=== PATIENT | female | born 1990 | race Caucasian/White ===

== ENCOUNTER 2017-02-19 09:35 | Emergency (ER) | payer OTHER ==
[~2017-02-19] VITALS: Ht 171.5 cm; Wt 72.8 kg
[~2017-02-19 09:35] MED LIST: ALBUAER2 INH; BCPILLS PO; CETI10TA84 PO; ELET20TA PO; PANT40TA PO; RANI300T2 PO; SCOP1.5D TD; SUCR1TAB29 PO
[2017-02-19 09:40] VITALS: TEMP 36.4; Ht 171.5 cm; Wt 72.8 kg
[2017-02-19] MEDS ORDERED: ALBUAER INH (10:13)
[2017-02-19] MEDS ORDERED: LEVO175T3 PO (10:13)
[2017-02-19 10:23] LABS: URINE APPEARANCE CLEAR (CLEAR); URINE BILIRUBIN NEG (NEG); URINE COLOR YELLOW; URINE EPITHELIAL CELL AUTO 20-30 /lpf (0-5); URINE NITRITE NEG (NEG); URINE SPECIFIC GRAVITY 1.014 (1.000-1.030); UROBILINOGEN NEG (NEG); ZZUR CULT IF INDIC CLEAN CATCH NO
[2017-02-19 10:27] LABS: BASO % 0.2 %; BASO ABS # 0.01 K/uL (0-0.2); COMPLETE YES; EOS % 1.2 %; HEMATOCRIT 40.1 % (37-47); IG% 0.2 %; LYMPH % 19.7 %; LYMPH ABS # 0.99 K/uL (1.2-3.4); MEAN CELL VOLUME 88.5 fL (80-100); MEAN CORPUSCULAR HEMOGLOBIN 30.9 pg (25-34); MEAN CORPUSCULAR HGB CONC 34.9 g/dl (32-36); MEAN PLATELET VOLUME 12.2 fL (7.4-10.4); MONO % 7.2 %; NEUT % 71.5 %; PLATELET COUNT 151 K/uL (130-400); RED BLOOD COUNT 4.53 M/uL (4.2-5.4); WHITE BLOOD COUNT 5.03 K/uL (4.8-10.8)
[2017-02-19 10:31] LABS: MANUAL MICROSCOPIC REQUIRED? NO; REVIEW REQ? NO
[2017-02-19 10:35] LABS: BUN/CREATININE RATIO 13.6 (10-20); CALCIUM 9.5 mg/dl (8.5-10.1); CREATININE 0.96 mg/dl (0.60-1.20); POTASSIUM 4.2 mmol/L (3.5-5.1)
[2017-02-19 10:37] LABS: ALB/GLOB RATIO 1.2 (0.9-2)
--- NOTE | 2017-02-19 10:39 | EMERGENCY ROOM VISIT NOTE ---
History Report prepared by Mela: Phyllis Howard Under the Supervision of: Dr. Allison Paris D.O. First contact with patient: 10:15 Chief Complaint: OTHER COMPLAINT Stated Complaint: CHEST PAIN,TREMORS,POSSIBLE MEDICATION REACTION History of Present Illness The patient is a 26 year old female who presents to the Emergency Room with complaints of a possible medication reaction. She reports she recently started a new thyroid medication, Levothyroxine, approximately 3 days ago, for newly diagnosed Abigail's Thyroiditis, for which she follows with Dr. Sullivan of [facility] End[facility]. This morning, approximately 2 minutes after she took it, she started feeling "lightheaded and shaky" as well as "cold and clammy". She did not pass out of lose consciousness. She admits to some intermittent nausea, chest pain, excessive burping and cramping pain in her arms and legs for the past 3 days. She has also experienced some mood swings for the past few days, which she states she has a history of. The patient complains of feeling feverish yesterday, but states her temperature was normal when she checked. She admits to a recent dry cough that also started after she began the Levothyroxine. She denies any chance of and states she is currently on her menstrual period. Her primary care physician is Dr. Carolina with [facility]. Source of History: patient Onset: earlier this morning Position: other (global) Quality: other (medication reaction) Associated Symptoms: + cough, + chest pain, + nausea, No LOC, No fevers Review of Systems See HPI for pertinent positives & negatives. A total of 10 systems reviewed and were otherwise negative. Past Medical & Surgical Medical Problems: (1) Abigail's thyroiditis (2) Orthostatic hypotension Family History Cancer Diabetes mellitus Gallbladder disease Hypertension Kidney disease Kidney stones Social History Smoking Status: Never Smoker Alcohol Use: none Drug Use: none Marital Status: single Housing Status: lives with family Occupation Status: unemployed Current/Historical Medications Scheduled Levothyroxine Sodium (Levothyroxine Sodium), 175 MCG PO DAILY Scheduled PRN Albuterol Sulfate (Proventil Hfa), 2 PUFF INH Q4H PRN for Shortness of Breath Allergies Coded Allergies: Coconut (Unverified Allergy, Unknown, UNKNOWN, 02/19/17) Egg (Unverified Allergy, Unknown, UNKNOWN, 02/19/17) Lactose Intolerance (GI) (Unverified Allergy, Unknown, UNKNOWN, 02/19/17) Peanut (Unverified Allergy, Unknown, UNKNOWN, 02/19/17) Soy Allergy (Unverified Allergy, Unknown, UNKNOWN, 02/19/17) Wheat (Unverified Allergy, Unknown, UNKNOWN, 02/19/17) Ibuprofen (Unverified Adverse Reaction, Intermediate, RASH/HIVES, 02/19/17) Polyethylene Glycol (Unverified Adverse Reaction, Intermediate, CHEST PAINS/NAUSEA, 02/19/17) Physical Exam Vital Signs Date Time Temp Pulse Resp B/P (MAP) Pulse Ox O2 Delivery O2 Flow Rate FiO2 02/19/17 13:15 68 18 106/76 96 02/19/17 09:40 36.4 80 18 118/74 100 Room Air Physical Exam HEENT: Head - normocephalic and atraumatic Pupils are equal, round, and reactive to light. Extraocular eye muscles are intact, and sclera are anicteric. Nose - moist nasal mucosa without discharge. Mouth - moist buccal mucosa. Oropharynx is nonerythematous and there is no tonsillar exudate or edema noted. Neck: Supple; no JVD, nuchal rigidity, cervical lymphadenopathy. Heart: Regular rate and rhythm. There is a normal S1 and S2 with no murmurs, clicks, or gallops appreciated. Lungs: Clear to auscultation bilaterally with no wheezes, rales, or rhonchi. Abdomen: Soft, completely nontender, nondistended, with good bowel sounds. There are no palpable pulsatile masses or hepatosplenomegaly. There is no guarding, rigidity, or rebound noted. Extremities: No evidence of cyanosis, clubbing, or edema. There are easily palpable peripheral pulses. Skin: Skin is pale, blotchy around the neck, chest and back. No hives or urticaria. Medical Decision & Procedures Laboratory Results 02/19/17 10:00 Red Blood Count 4.53, Mean Corpuscular Volume 88.5, Mean Corpuscular Hemoglobin 30.9, Mean Corpuscular Hemoglobin Concent 34.9, Mean Platelet Volume 12.2, Neutrophils (%) (Auto) 71.5, Lymphocytes (%) (Auto) 19.7, Monocytes (%) (Auto) 7.2, Eosinophils (%) (Auto) 1.2, Basophils (%) (Auto) 0.2, Neutrophils # (Auto) 3.60, Lymphocytes # (Auto) 0.99, Monocytes # (Auto) 0.36, Eosinophils # (Auto) 0.06, Basophils # (Auto) 0.01 02/19/17 10:00 Test 02/19/17 09:50 02/19/17 10:00 Urine Color YELLOW Urine Appearance CLEAR (CLEAR) Urine pH 5.0 (4.5-7.5) Urine Specific [place] 1.014 (1.000-1.030) Urine Protein NEG (NEG) Urine Glucose (UA) NEG (NEG) Urine Ketones 1+ (NEG) Urine Occult Blood 3+ (NEG) Urine Nitrite NEG (NEG) Urine Bilirubin NEG (NEG) Urine Urobilinogen NEG (NEG) Urine Leukocyte Esterase TRACE (NEG) Urine WBC (Auto) 1-5 /hpf (0-5) Urine RBC (Auto) 10-30 /hpf (0-4) Urine Hyaline Casts (Auto) 0 /lpf (0-5) Urine Epithelial Cells (Auto) 20-30 /lpf (0-5) Urine Bacteria (Auto) NEG (NEG) Urine Test NEG (NEG) White Blood Count 5.03 K/uL (4.8-10.8) Red Blood Count 4.53 M/uL (4.2-5.4) Hemoglobin 14.0 g/dL (12.0-16.0) Hematocrit 40.1 % (37-47) Mean Corpuscular Volume 88.5 fL (80-100) Mean Corpuscular Hemoglobin 30.9 pg (25-34) Mean Corpuscular Hemoglobin Concent 34.9 g/dl (32-36) Platelet Count 151 K/uL (130-400) Mean Platelet Volume 12.2 fL (7.4-10.4) Neutrophils (%) (Auto) 71.5 % Lymphocytes (%) (Auto) 19.7 % Monocytes (%) (Auto) 7.2 % Eosinophils (%) (Auto) 1.2 % Basophils (%) (Auto) 0.2 % Neutrophils # (Auto) 3.60 K/uL (1.4-6.5) Lymphocytes # (Auto) 0.99 K/uL (1.2-3.4) Monocytes # (Auto) 0.36 K/uL (0.11-0.59) Eosinophils # (Auto) 0.06 K/uL (0-0.5) Basophils # (Auto) 0.01 K/uL (0-0.2) RDW Standard Deviation 39.5 fL (36.4-46.3) RDW Coefficient of Variation 12.3 % (11.5-14.5) Immature Granulocyte % (Auto) 0.2 % Immature Granulocyte # (Auto) 0.01 K/uL (0.00-0.02) Anion Gap 4.0 mmol/L (3-11) Est Creatinine Clear Calc Drug Dose 89.6 ml/min Estimated GFR () 95.9 Estimated GFR (Non- 82.8 BUN/Creatinine Ratio 13.6 (10-20) Calcium Level 9.5 mg/dl (8.5-10.1) Total Bilirubin 0.6 mg/dl (0.2-1) Aspartate Amino Transf (AST/SGOT) 14 U/L (15-37) Alanine Aminotransferase (ALT/SGPT) 23 U/L (12-78) Alkaline Phosphatase 113 U/L (45-117) Total Protein 7.6 gm/dl (6.4-8.2) Albumin 4.2 gm/dl (3.4-5.0) Globulin 3.4 gm/dl (2.5-4.0) Albumin/Globulin Ratio 1.2 (0.9-2) Thyroid Stimulating Hormone (TSH) 4.730 uIu/ml (0.300-4.500) Free Thyroxine 1.39 ng/dl (0.80-1.60) Free Triiodothyronine 3.66 pg/ml (2.30-4.20) Laboratory results per my review. Medications Administered Medications (Trade) Dose Ordered Sig/Raisa Route Start Time Stop Time Status Last Admin Dose Admin Sodium Chloride 1,000 ml @ 999 mls/hr Q1H1M STAT IV 02/19/17 10:40 02/19/17 11:40 DC 02/19/17 10:56 999 MLS/HR Procedure NSS 1000 ml @ 999 mls/hr IV. ECG Indication: weakness Rate (beats per minute): 68 Rhythm: normal sinus Findings: no acute ischemic change, no ectopy ED Course 1029: Past medical records reviewed. The patient was evaluated in room B8. A complete history and physical exam was performed. Labs were drawn as above. 1040: NSS 1000 ml @ 999 mls/hr IV. The patient had a twelve-lead EKG as described above. 1250: I reevaluated the patient. She is feeling better. I discussed her results and discharge instructions and she verbalized complete understanding and agreement. Medical Decision I attest that I have personally reviewed the patient's current medication list. Patient was found to have normal blood pressure on screening and does not require follow-up. The patient is a 26 year old female who presents to the ED with a possible medication reaction. The differential diagnoses considered include: medication side effect, thyroid storm, anxiety, dehydration and orthostasis. Lab results show normal electrolytes, normal renal function, Glucose and LFT's are normal, TSH is 4.730, Free T4 is 1.3, Free T3 is 1.6. No elevated WBC. No anemia. Kidney function tests are normal. Normal sugars, electrolytes are normal , liver function tests are normal. Urine has a large amount of blood and a large number of ketone's to suggest dehydration. The patient was recently diagnosed with significant hypothyroidism as she had a TSH in excess of 85. I did review previous medical records on her and found that she had very low and normal TSH, free T3, and free T4 in 2013. She had recently seen endocrinology and her PCP started her on 125 g of levothyroxine. The patient had no side effects and continuous medication for approximately one week but then developed a multitude symptoms. Some of these may have been related to side effects and these meds, however the episode the patient describes today where she developed tremors approximately 2 minutes after taking her dose of levothyroxine, I'm not convinced that this was caused by ingestion of that medication. The patient does have history of anxiety. She also suffers from orthostatic hypotension. I think this may have contributed to her symptoms this morning. The patient also describes hand cramping and pain but notes that she was crying when these symptoms occurred. The patient will follow up with her PCP with regards to her thyroid medication. In laboratory testing today, the patient's TSH was down to approximately 4 from 85 in just 7-8 days. The patient explained to me that she has been nearly bedridden for the past couple of years with fibromyalgia and chronic fatigue syndrome stating that no one had ever checked her thyroid hormone levels in the past and this is the cause for her being bedridden. Impression Primary Impression: Anxiety Additional Impression: Medication reaction Scribe Attestation The scribe's documentation has been prepared under my direction and personally reviewed by me in its entirety. I confirm that the note above accurately reflects all work, treatment, procedures, and medical decision making performed by me. Departure Information Dispostion Home / Self-Care Referrals Annable Carolina M.D. (PCP) Patient Instructions Anxiety Body Response, Anxiety Disorder, My [facility] Additional Instructions Follow up on Tuesday with Dr. Sullivan Keep yourself well-hydrated. Return to the ER for worsening symptoms Problem Qualifiers Additional Impression: Medication reaction Encounter type: initial encounter Qualified Codes: T88.7XXA - Unspecified adverse effect of drug or medicament, initial encounter
[2017-02-19] MEDS ORDERED: SODIUM CHLORIDE 0.9% 1000ML 1,000 ML IV STA (10:40)
[2017-02-19 12:16] LABS: THYROID STIMULATING HORMONE 4.73 uIu/ml (0.300-4.500)
[2017-02-19 13:15] VITALS: BP 106/76; PULSE 68; O2SAT 96
== END 2017-02-19 14:16 | disposition home or self-care (01) ==
LOC: C.EDB 09:36
DX: F41.9 Anxiety disorder, unspecified (principal); T38.1X5A Adverse effect of thyroid hormones and substitutes, initial encounter; E06.3 Autoimmune thyroiditis; I95.1 Orthostatic hypotension; M79.7 Fibromyalgia; R53.82 Chronic fatigue, unspecified; Z80.9 Family history of malignant neoplasm, unspecified; Z83.3 Family history of diabetes mellitus; Z82.49 Family history of ischemic heart disease and other diseases of the circulatory system; Z84.1 Family history of disorders of kidney and ureter; Z79.899 Other long term (current) drug therapy

== ENCOUNTER 2024-07-10 14:35 | Inpatient (IN) ==
--- NOTE | 2024-07-10 15:01 | ED Triage Note ---
Date of Service July 10, 2024 Provider in Triage Author: Ahn Katz History of Present Illness This patient was briefly evaluated while in triage. An abbreviated physical exam was performed. This patient is a 34-year-old Female who presents to the ED for evaluation of na usea, vomiting, and diarrhea since 5am. Pt. states she doesn't know when her diarrhea happens, she feels a "splash in my underwear" and notes it smells very foul. Pt. took Zofran and meclizine prior to arrival without relief of symptoms. Pt. having generalized abdominal pain associated with vomiting and dry heaves. States there is a warm sensation which is radiating from the middle of her abdomen up to her throat. Physical Exam VITALS: Vitals are noted on the nurse's note and reviewed by myself. GENERAL: This is a 34 year old female, in no acute distress, nondiaphoretic, well-developed well-nourished. SKIN: No obvious rashes, edema, erythema HEAD: Normocephalic atraumatic. EYES: Conjunctivae without injection, sclerae without icterus. NECK: No JVD. LUNGS: No retractions or accessory muscle use. MUSCULOSKELETAL: Normal gait. NEURO: Patient was alert and oriented to person place and time. No focal neurological deficits. Initial orders for labs and / or imaging were placed and patient was placed in the waiting area until a bed is available. Please see further documentation for the full ED course.
[2024-07-10] MEDS: FAMOTIDINE 20MG IV PUSH 20 MG/5 ML SYR IV STA (15:46)
[2024-07-10] MEDS: ONDANSETRON INJ 2 MG/ML 2 ML VIAL IV STA (15:46)
[2024-07-10] MEDS: SODIUM CHLORIDE 0.9% 1,000 ML IV ONE ×3 (15:47→21:35)
[2024-07-10 16:19] LABS: Pregnancy Test, Serum Negative (Negative)
[2024-07-10 16:31] LABS: Alanine Aminotransferase 40 U/L (7-52); Albumin Globulin Ratio 1.8 (0.9-2); Albumin Level 4.9 gm/dl (3.4-5.0); Alkaline Phosphatase 82 U/L (34-104); Anion Gap 12 (3-11); BUN Creatinine Ratio 21.3 (10-20); Bilirubin,Total 0.9 mg/dl (0.2-1.0); Blood Urea Nitrogen 16 mg/dl (6-23); Calcium 9.5 mg/dl (8.6-10.3); Carbon Dioxide 19 mmol/L (21-32); Chloride 107 mmol/L (98-107); Globulin 2.8 gm/dl (2.5-4.0); Glucose 116 mg/dl (70-99(Fasting)); Lipase 10 U/L (11-82); Sodium 138 mmol/L (136-145); Total Protein 7.7 gm/dl (6.0-8.3)
[2024-07-10 16:45] LABS: Appearance Urine Cloudy (Clear); Bacteria Urine Automated 2+ (None Seen); Bilirubin Urine Negative (Negative); Blood Urine 3+ (Negative); Cast Urine Automated 0-2 /lpf (0-2); Color Urine Yellow; Glucose Urine UA Negative (Negative); Ketones Urine 3+ (Negative); Leukocyte Esterase Urine 2+ (Negative); Mucus Urine Present (None Prsent); Nitrite Urine Negative (Negative); Protein Urine 2+ (Negative); RBC Urine Automated >20 /hpf (0-2); Specific Gravity Urine 1.033 (1.000-1.030); Urobilinogen Urine Negative (Negative); WBC Urine Automated 21-50 /hpf (0-5); pH Urine 5.5 (4.5-7.5)
[2024-07-10] MEDS: OPTIRAY 320 100ml IV ONE (17:30)
[2024-07-10 17:45] LABS: Adenovirus F 40/41 PCR Not Detected (NotDetected); Astrovirus PCR Not Detected (NotDetected); Campylobacter PCR Not Detected (NotDetected); Cryptosporidium PCR Not Detected (NotDetected); Cyclospora cayetanensis PCR Not Detected (NotDetected); Entamoeba histolytica PCR Not Detected (NotDetected); Enteroaggregative E.coli(EAEC) Not Detected (NotDetected); Enteropathogenic E.coli (EPEC) Not Detected (NotDetected); Enterotoxigenic E.coli (ETEC) Not Detected (NotDetected); Giardia lamblia PCR Not Detected (NotDetected); Plesiomonas shigelloides PCR Not Detected (NotDetected); Rotavirus A PCR Not Detected (NotDetected); Salmonella PCR Not Detected (NotDetected); Sapovirus PCR Not Detected (NotDetected); Shiga-like Toxin E.coli (STEC) Not Detected (NotDetected); Shigella/Enteroinvasive E.coli Not Detected (NotDetected); Vibrio cholerae PCR Not Detected (NotDetected); Vibrio species PCR Not Detected (NotDetected); Yersinia enterocolitica PCR Not Detected (NotDetected)
--- NOTE | 2024-07-10 17:49 | CT Scan Report ---
EXAM: CT Abdomen and Pelvis With Intravenous Contrast INDICATION: Upper abdominal pain and vomiting. TECHNIQUE: Axial computed tomography images of the abdomen and pelvis with intravenous contrast. Sagittal and coronal reformatted images were created and reviewed. This CT exam was performed using one or more of the following dose reduction techniques: automated exposure control, adjustment of the mA and/or kV according to patient size, and/or use of iterative reconstruction technique. CONTRAST: 91ml of Optiray 320 was administered intravenously. COMPARISON: No relevant prior studies available. FINDINGS: Limitations: None. Lung bases: No abnormality noted. Pleural space: No visualized pleural effusion or pneumothorax. Heart: No abnormality noted. Mediastinum: No abnormality noted. ABDOMEN: Liver: No abnormality noted. Gallbladder and bile ducts: Cholecystectomy. No ductal dilation or stone noted. Pancreas: Homogeneous enhancement. No mass, inflammation or ductal dilation. Spleen: No significant abnormality noted. Adrenals: No significant abnormality noted. Kidneys and ureters: Normal enhancement. No mass, hydronephrosis or visualized stone. Stomach and bowel: There is fluid throughout the intestinal tract without thickening, obstruction or inflammatory change in the adjacent mesentery. PELVIS: Appendix: Well seen and appears normal. Bladder: Incompletely distended and not optimally assessed. No gas or stone. Reproductive: No abnormalities noted. ABDOMEN and PELVIS: Intraperitoneal space: See above. Bones/joints: No acute changes. Soft tissues: No significant abnormality noted. Vasculature: No abdominal aortic aneurysm. Lymph nodes: No pathologically enlarged lymph nodes. IMPRESSION: 1. Mild nonspecific ileus. No inflammatory process or obstruction. 2. Poorly evaluated urinary bladder due to collapse. Correlate with urinalysis to exclude cystitis. ACT 112: Negative or not required by law. Electronically signed by Destini Nicholson 07-10-2024 5:49 PM
[2024-07-10] MEDS: cefTRIAXone SODIUM 2,000 MG/50 ML BAG IV SCH (17:56)
[2024-07-10 18:15] LABS: Norovirus GI/GII PCR DETECTED (NotDetected)
[2024-07-10 18:29] LABS: Hematocrit (blood only) 44.1 % (37.0-47.0); Hemoglobin 14.8 g/dl (12.0-16.0); Mean Corpuscular Hemoglobin 30.2 pg (25.0-34.0); Mean Corpuscular Hgb Conc 33.6 g/dL (32.0-36.0); Mean Platelet Volume 12.3 fL (9.4-12.4); Platelet Count 187 K/uL (130-400); RDW Coefficient of Variation 12.3 % (11.5-14.5); RDW Standard Deviation 40.2 fL (36.4-46.3); White Blood Count 15.37 K/ul (4.8-10.8)
--- NOTE | 2024-07-10 18:34 | Emergency Department Note ---
Impression & Plan Nausea, vomiting, and diarrhea, Acute dehydration, Gastroenteritis, Gastroenteritis due to norovirus ED Provider Note HISTORY OF PRESENT ILLNESS: Patient is a 34-year-old female presenting with abdominal pain, vomiting and diarrhea. Patient reports that she woke up this morning at 5 AM and started vomiting. Reports has been unable to tolerate oral intake and has had persistent episodes of vomiting throughout the day. Reports that she started having profuse diarrhea and bowel incontinence throughout the day today. Reports that her stool is very foul-smelling. Reports generalized abdominal pain. Reports an abdominal surgical history significant for cholecystectomy. She states she took Zofran at home today but then proceeded to vomit. Reports feeling very lightheaded and dehydrated. Denies any chest pain or shortness of breath. Denies any fevers. Denies any recent sick contact exposures. Denies any recent travel. ROS: as above PHYSICAL EXAM: Constitutional: Patient appears in no acute distress. HENT: Head: Normocephalic and atraumatic. Eyes: EOMI, PERRL Mouth/Throat: Mucous membranes dry. Neck: Trachea midline. Neck supple. Cardiovascular: Tachycardic with regular rhythm. No murmurs, rubs or gallops. Intact distal pulses. Pulmonary/Chest: No respiratory distress. Breath sounds clear and equal bilaterally. No wheezes or rales. Abdominal: Abdomen soft, no tenderness, rebound or guarding. Musculoskeletal: No edema, tenderness or deformity noted. Skin: Warm and dry. No rash, erythema, pallor or cyanosis Psychiatric: Appropriate mood and affect for situation. Neurological: Alert and keenly responsive. CN II-XII grossly intact, moving all extremities equally and fully. MDM: - Vitals signs showed tachycardia. - History obtained via patient. History as above. - Chronic conditions affecting care: IBS; hypothyroidism - Differential diagnoses include, but are not limited to: Viral syndrome; choledocholithiasis; diverticulitis; dehydration; electrolyte abnormality; appendicitis - Order placed for continuous cardiac monitoring. At this time, monitor showed rate of 106 bpm with normal sinus rhythm, per my interpretation. - External medical records reviewed. Family practice office visit note dated 09/20/2022 was reviewed. Patient was seen in clinic for general medicine follow- up. - Laboratory workup interpreted by myself showed leukocytosis (WBC 15.37); normal electrolytes; elevated anion gap (12) with slightly elevated glucose (116); normal liver function; normal lipase; negative hCG - Viral respiratory panel negative - UA showed bacteria and WBCs, but noted to have significant number of epithelial cells. Patient is not complaining of any dysuria. Patient given a one-time dose of 2 g IV Rocephin in the emergency department. As patient is asymptomatic, will await urine cultures and not prescribing outpatient antibiotic at this time. - Stool PCR positive for norovirus. - CT abdomen/pelvis with IV contrast showed nonspecific ileus. Normal appendix. - Patient given 1L NS, 20 mg IV pepcid and 4 mg IV zofran on arrival to ER. Given an additional 1L NS in ER for hydration. Patient's tachycardia improved with IV hydration. - Leukocytosis likely reactive secondary to patient's multiple episodes of vomiting and diarrhea. - Discussed results with the patient. Instructed on good hand hygiene given her norovirus positivity. Instructed on staying well-hydrated for the next few days. She does have Zofran at home. She tolerated oral intake in the emergency department any further episodes of vomiting. Patient feels comfortable plan for discharge. - Patient remained stable throughout the visit. Results were discussed with the patient and patient's family. They were given the opportunity to ask questions. Had lengthy discussion with patient about supportive care return precautions. No new prescriptions. No changes to medications. Patient to follow up with primary care physician for further evaluation and management. All questions answered. Patient agreeable plan. ASSESSMENT AND PLAN: Diagnosis: Nausea, vomiting and diarrhea; gastroenteritis; gastroenteritis due to norovirus infection; acute dehydration Plan: Discharge Past Med/Surg History Problem List (Updated 07/10/24 @ 19:45 by Anh Katz MD) Gastroenteritis due to norovirus (Acute) Gastroenteritis (Acute) Acute dehydration (Acute) Nausea, vomiting, and diarrhea (Acute) Nausea (Acute) Dehydration (Acute) Vertigo (Acute) Dysmenorrhea (Acute) Lactose intolerance Depression GERD (gastroesophageal reflux disease) Irritable bowel syndrome (IBS) Migraine headache Asthma Generalized anxiety disorder Hypothyroidism (Chronic) Orthostatic hypotension Medical History Goiter Rash Abigail's thyroiditis Surgical History H/O colonoscopy (02/2019) Dr. Leyva Hx of esophagogastroduodenoscopy (02/2019) Dr. Leyva Hx of cholecystectomy History of tonsillectomy and adenoidectomy Family History Mother Crohn's disease Father Mitral valve prolapse Social History Smoking Status: Never smoker Hx Alcohol Use: No Preferred Language: [place] Feels Safe at Home: Yes Allergies Allergies Allergy/AdvReac Type Severity Reaction Status Date / Time coconut Allergy Unknown UNKNOWN Unverified 09/10/20 13:00 egg Allergy Unknown UNKNOWN Unverified 09/10/20 13:00 lactose Allergy Unknown UNKNOWN Unverified 09/10/20 13:00 peanut Allergy Unknown UNKNOWN Unverified 09/10/20 13:00 soy Allergy Unknown UNKNOWN Unverified 09/10/20 13:00 wheat Allergy Unknown UNKNOWN Unverified 09/10/20 13:00 almond Allergy Verified 09/10/20 13:00 ibuprofen AdvReac Intermediate RASH/HIVES Unverified 09/10/20 13:00 polyethylene glycol AdvReac Intermediate CHEST Unverified 09/10/20 13:00 PAINS/NAUSEA Home Meds Home Medications Medication Instructions Recorded Confirmed albuterol sulfate 90 mcg/actuation 2 puffs inhalation Q4H PRN 06/17/19 09/10/20 aerosol inhaler Shortness Of Breath levothyroxine 25 mcg tablet 25 mcg PO DAILY 06/17/19 09/10/20 cyanocobalamin (vitamin B-12) 1,500 mcg PO DAILY 09/10/20 09/10/20 1,500 mcg tablet,extended release Previous Rx's Medication Instructions Recorded cetirizine 1 mg/mL oral solution 10 mg (10 mL) PO DAILY PRN allergy 02/27/19 symptoms #300 mL meclizine 25 mg tablet 25 mg PO TID PRN dizziness #14 tabs 07/03/24 ondansetron 4 mg disintegrating 4 mg PO Q6H PRN nausea and 07/03/24 tablet vomiting #14 tabs Results & Data (ED) Vital Signs Vital Signs - 24 hr 07/10/24 15:00 07/10/24 17:35 07/10/24 18:12 Temperature 36.6 C Temperature Source Temporal Artery Scan Pulse Rate 121 H 113 H Pulse Rate from SpO2 Sensor Respiratory Rate 18 Respiratory Effort / Characteristics Non-Labored Spontaneous Respiratory Depth Normal Respiratory Pattern Regular Blood Pressure 123/76 Blood Pressure Mean 91 Pulse Oximetry 98 98 Oxygen Delivery Method Room Air Room Air Sepsis Recent Fever Within 48 Hours No Sepsis New/Unexplained Change in Mental Status N/A Sepsis Action Taken by Nursing No Action Required 07/10/24 18:27 07/10/24 19:03 07/10/24 19:39 Temperature Temperature Source Pulse Rate 106 H 101 H 106 H Pulse Rate from SpO2 Sensor 108 H 102 H 107 H Respiratory Rate 17 14 24 Respiratory Effort / Characteristics Respiratory Depth Respiratory Pattern Blood Pressure 116/82 125/90 118/80 Blood Pressure Mean 93 101 92 Pulse Oximetry 100 99 100 Oxygen Delivery Method Sepsis Recent Fever Within 48 Hours Sepsis New/Unexplained Change in Mental Status Sepsis Action Taken by Nursing Laboratory Data 07/10/24 18:07 07/10/24 18:43 Lab Results 07/10/24 07/10/24 07/10/24 Range/Units 15:40 16:08 17:49 WBC Cancelled RBC Cancelled Hgb Cancelled Hct Cancelled MCV Cancelled MCH Cancelled MCHC Cancelled RDW Std Deviation Cancelled RDW Coeff of Jena Cancelled Plt Count Cancelled MPV Cancelled Immature Gran % (Auto) Cancelled Neut % (Auto) Cancelled Lymph % (Auto) Cancelled [place] % (Auto) Cancelled Eos % (Auto) Cancelled Baso % (Auto) Cancelled Neut # (Auto) Cancelled Lymph # (Auto) Cancelled [place] # (Auto) Cancelled Eos # (Auto) Cancelled Baso # (Auto) Cancelled Immature Gran # (Auto) Cancelled Absolute Nucleated RBC Cancelled Nucleated RBC % (auto) Cancelled Neutrophils % (Manual) Cancelled Band Neutrophils % Cancelled Lymphocytes % (Manual) Cancelled Prolymphocyte % Cancelled Reactive Lymphs % (Man) Cancelled Monocytes % (Manual) Cancelled Eosinophils % (Manual) Cancelled Basophils % (Manual) Cancelled Metamyelocytes % (Man) Cancelled Myelocytes % (Man) Cancelled Promyelocytes % (Man) Cancelled Blast Cells % (Manual) Cancelled Plasma Cell % (Manual) Cancelled Other Cells % Cancelled Nucleated RBC % Cancelled Neutrophils # (Manual) Cancelled Band Neutrophils # Cancelled Total Absolute Neuts Cancelled Lymphocytes # (Manual) Cancelled Prolymphocyte # Cancelled Reactive Lymphs # Cancelled Total Abs Lymphocytes Cancelled Monocytes # (Manual) Cancelled Eosinophils # (Manual) Cancelled Basophils # (Manual) Cancelled Metamyelocytes # (Man) Cancelled Myelocytes # (Manual) Cancelled Promyelocytes # (Man) Cancelled Blast Cells # (Man) Cancelled Plasma Cell # (Manual) Cancelled Other Cells # Cancelled Nucleated RBCs # (Man) Cancelled Hypersegmented Neuts Cancelled Hyposegmented Neuts Cancelled Hypogranular Neuts Cancelled Large Granular Lymphs Cancelled # Lrg Granular Lymphs Cancelled Hairy Cells Cancelled Smudge Cells Cancelled Toxic Granulation Cancelled Toxic Vacuolation Cancelled Dohle Bodies Cancelled Madhu Rods Cancelled Platelet Estimate Cancelled Hypogranular Platelets Cancelled Giant Platelets Cancelled Platelet Satelliting Cancelled RBC Morphology Cancelled Polychromasia Cancelled Hypochromasia Cancelled Poikilocytosis Cancelled Basophilic Stippling Cancelled Anisocytosis Cancelled Microcytosis Cancelled Macrocytosis Cancelled Spherocytes Cancelled Pappenheimer Bodies Cancelled Sickle Cells Cancelled Target Cells Cancelled Tear Drop Cells Cancelled Ovalocytes Cancelled Stomatocytes Cancelled [place] Bodies Cancelled Echinocytes Cancelled Acanthocytes (Spur) Cancelled Rouleaux Cancelled RBC Agglutinates Cancelled Schistocytes Cancelled Sezary Cell Cancelled Sodium 138 (136-145) mmol/L Potassium TNP Chloride 107 (98-107) mmol/L Carbon Dioxide 19 L (21-32) mmol/L Anion Gap 12 H (3-11) BUN 16 (6-23) mg/dl Creatinine 0.75 (0.6-1.2) mg/dl Est Cr Clr Drug Dosing Not Reportable eGFR 108.41 BUN/Creatinine Ratio 21.3 H (10-20) Glucose 116 H (70-99(Fasting)) mg/dl Calcium 9.5 (8.6-10.3) mg/dl Total Bilirubin 0.9 (0.2-1.0) mg/dl AST TNP ALT 40 (7-52) U/L Alkaline Phosphatase 82 (34-104) U/L Total Protein 7.7 (6.0-8.3) gm/dl Albumin 4.9 (3.4-5.0) gm/dl Globulin 2.8 (2.5-4.0) gm/dl Albumin/Globulin Ratio 1.8 (0.9-2) Lipase 10 L (11-82) U/L HCG, Qual Negative (Negative) Urine Color Yellow Urine Appearance Cloudy A (Clear) Urine pH 5.5 (4.5-7.5) Ur Specific [place] 1.033 H (1.000-1.030) Urine Protein 2+ H (Negative) Urine Glucose (UA) Negative (Negative) Urine Ketones 3+ H (Negative) Urine Blood 3+ H (Negative) Urine Nitrite Negative (Negative) Urine Bilirubin Negative (Negative) Urine Urobilinogen Negative (Negative) Ur Leukocyte Esterase 2+ H (Negative) Urine WBC (Auto) 21-50 H (0-5) /hpf Urine RBC (Auto) >20 H (0-2) /hpf U Hyaline Cast (Auto) 0-2 (0-2) /lpf U Epithel Cells (Auto) 11-20 H (0-2) /hpf Urine Bacteria (Auto) 2+ H (None Seen) Urine Mucus Present A (None Prsent) Stl C. cayetanensis PCR Not Detected (NotDetected) Stool Rotavirus A PCR Not Detected (NotDetected) Stl Adenov F 40/41 PCR Not Detected (NotDetected) Stool Astrovirus (PCR) Not Detected (NotDetected) Stool Campylobacter PCR Not Detected (NotDetected) Stool Cryptosporidium PCR Not Detected (NotDetected) Stl E.coli Shiga Tox PCR Not Detected (NotDetected) Stl Enterotoxigenic E PCR Not Detected (NotDetected) Stool EPEC (PCR) Not Detected (NotDetected) Stool EAEC (PCR) Not Detected (NotDetected) Stl E. histolytica PCR Not Detected (NotDetected) Stool Giardia Lamblia PCR Not Detected (NotDetected) Stool Salmonella PCR Not Detected (NotDetected) Stool Sapovirus (PCR) Not Detected (NotDetected) Stl P. shigelloides PCR Not Detected (NotDetected) Stl Shigella/EIEC PCR Not Detected (NotDetected) St Y.enterocolitica PCR Not Detected (NotDetected) Stool Vibrio (PCR) Not Detected (NotDetected) Stl Vibrio cholerae PCR Not Detected (NotDetected) Stl Norovirus GI/GII PCR DETECTED A* (NotDetected) Adenovirus (PCR) Not Detected (NotDetected) B. pertussis DNA (PCR) Not Detected (NotDetected) B.parapertussis DNA PCR Not Detected (NotDetected) C. pneumoniae DNA (PCR) Not Detected (NotDetected) Coronavirus OC43 (PCR) Not Detected (NotDetected) Coronavirus HKU1 (PCR) Not Detected (NotDetected) Coronavirus 229E (PCR) Not Detected (NotDetected) SARS-CoV-2 (PCR) Not Detected (NotDetected) Coronavirus NL63 (PCR) Not Detected (NotDetected) Human Metapneumovir PCR Not Detected (NotDetected) Influenza Type A (PCR) Not Detected (NotDetected) Influenza Type B (PCR) Not Detected (NotDetected) M. pneumoniae (PCR) Not Detected (NotDetected) Parainfluenza 1 (PCR) Not Detected (NotDetected) Parainfluenza 2 (PCR) Not Detected (NotDetected) Parainfluenza 3 (PCR) Not Detected (NotDetected) Parainfluenza 4 (PCR) Not Detected (NotDetected) RSV (PCR) Not Detected (NotDetected) Entero/Rhino (PCR) Not Detected (NotDetected) Blood Parasites ID Cancelled 07/10/24 07/10/24 Range/Units 18:07 18:43 WBC 15.37 H RBC 4.90 Hgb 14.8 Hct 44.1 MCV 90.0 MCH 30.2 MCHC 33.6 RDW Std Deviation 40.2 RDW Coeff of Jena 12.3 Plt Count 187 MPV 12.3 Immature Gran % (Auto) 0.3 Neut % (Auto) 94.6 Lymph % (Auto) 1.8 [place] % (Auto) 3.1 Eos % (Auto) 0.1 Baso % (Auto) 0.1 Neut # (Auto) 14.57 H Lymph # (Auto) 0.[address] [place] # (Auto) 0.47 Eos # (Auto) 0.01 Baso # (Auto) 0.01 Immature Gran # (Auto) 0.04 Absolute Nucleated RBC Nucleated RBC % (auto) Neutrophils % (Manual) Band Neutrophils % Lymphocytes % (Manual) Prolymphocyte % Reactive Lymphs % (Man) Monocytes % (Manual) Eosinophils % (Manual) Basophils % (Manual) Metamyelocytes % (Man) Myelocytes % (Man) Promyelocytes % (Man) Blast Cells % (Manual) Plasma Cell % (Manual) Other Cells % Nucleated RBC % Neutrophils # (Manual) Band Neutrophils # Total Absolute Neuts Lymphocytes # (Manual) Prolymphocyte # Reactive Lymphs # Total Abs Lymphocytes Monocytes # (Manual) Eosinophils # (Manual) Basophils # (Manual) Metamyelocytes # (Man) Myelocytes # (Manual) Promyelocytes # (Man) Blast Cells # (Man) Plasma Cell # (Manual) Other Cells # Nucleated RBCs # (Man) Hypersegmented Neuts Hyposegmented Neuts Hypogranular Neuts Large Granular Lymphs # Lrg Granular Lymphs Hairy Cells Smudge Cells Toxic Granulation Toxic Vacuolation Dohle Bodies Madhu Rods Platelet Estimate Hypogranular Platelets Giant Platelets Platelet Satelliting RBC Morphology Polychromasia Hypochromasia Poikilocytosis Basophilic Stippling Anisocytosis Microcytosis Macrocytosis Spherocytes Pappenheimer Bodies Sickle Cells Target Cells Tear Drop Cells Ovalocytes Stomatocytes [place] Bodies Echinocytes Acanthocytes (Spur) Rouleaux RBC Agglutinates Schistocytes Sezary Cell Sodium (136-145) mmol/L Potassium TNP 3.7 Chloride (98-107) mmol/L Carbon Dioxide (21-32) mmol/L Anion Gap (3-11) BUN (6-23) mg/dl Creatinine (0.6-1.2) mg/dl Est Cr Clr Drug Dosing eGFR BUN/Creatinine Ratio (10-20) Glucose (70-99(Fasting)) mg/dl Calcium (8.6-10.3) mg/dl Total Bilirubin (0.2-1.0) mg/dl AST TNP 21 ALT (7-52) U/L Alkaline Phosphatase (34-104) U/L Total Protein (6.0-8.3) gm/dl Albumin (3.4-5.0) gm/dl Globulin (2.5-4.0) gm/dl Albumin/Globulin Ratio (0.9-2) Lipase (11-82) U/L HCG, Qual (Negative) Urine Color Urine Appearance (Clear) Urine pH (4.5-7.5) Ur Specific [place] (1.000-1.030) Urine Protein (Negative) Urine Glucose (UA) (Negative) Urine Ketones (Negative) Urine Blood (Negative) Urine Nitrite (Negative) Urine Bilirubin (Negative) Urine Urobilinogen (Negative) Ur Leukocyte Esterase (Negative) Urine WBC (Auto) (0-5) /hpf Urine RBC (Auto) (0-2) /hpf U Hyaline Cast (Auto) (0-2) /lpf U Epithel Cells (Auto) (0-2) /hpf Urine Bacteria (Auto) (None Seen) Urine Mucus (None Prsent) Stl C. cayetanensis PCR (NotDetected) Stool Rotavirus A PCR (NotDetected) Stl Adenov F 40/41 PCR (NotDetected) Stool Astrovirus (PCR) (NotDetected) Stool Campylobacter PCR (NotDetected) Stool Cryptosporidium PCR (NotDetected) Stl E.coli Shiga Tox PCR (NotDetected) Stl Enterotoxigenic E PCR (NotDetected) Stool EPEC (PCR) (NotDetected) Stool EAEC (PCR) (NotDetected) Stl E. histolytica PCR (NotDetected) Stool Giardia Lamblia PCR (NotDetected) Stool Salmonella PCR (NotDetected) Stool Sapovirus (PCR) (NotDetected) Stl P. shigelloides PCR (NotDetected) Stl Shigella/EIEC PCR (NotDetected) St Y.enterocolitica PCR (NotDetected) Stool Vibrio (PCR) (NotDetected) Stl Vibrio cholerae PCR (NotDetected) Stl Norovirus GI/GII PCR (NotDetected) Adenovirus (PCR) (NotDetected) B. pertussis DNA (PCR) (NotDetected) B.parapertussis DNA PCR (NotDetected) C. pneumoniae DNA (PCR) (NotDetected) Coronavirus OC43 (PCR) (NotDetected) Coronavirus HKU1 (PCR) (NotDetected) Coronavirus 229E (PCR) (NotDetected) SARS-CoV-2 (PCR) (NotDetected) Coronavirus NL63 (PCR) (NotDetected) Human Metapneumovir PCR (NotDetected) Influenza Type A (PCR) (NotDetected) Influenza Type B (PCR) (NotDetected) M. pneumoniae (PCR) (NotDetected) Parainfluenza 1 (PCR) (NotDetected) Parainfluenza 2 (PCR) (NotDetected) Parainfluenza 3 (PCR) (NotDetected) Parainfluenza 4 (PCR) (NotDetected) RSV (PCR) (NotDetected) Entero/Rhino (PCR) (NotDetected) Blood Parasites ID Administered Medications Ceftriaxone Sodium (Rocephin) 2,000 mg in 50 mls @ 100 mls/hr IV Q24H KUSH Stop: 07/12/24 17:44 Last Infusion: 07/10/24 18:32 Dose: Infused Documented By: CARLOS EDUARDO Admin: 07/10/24 17:56 Dose: 100 mls/hr Documented By: CARLOS EDUARDO Discontinued Medications Famotidine (Pepcid 20mg Iv Push) 20 mg in 5 mls @ 2.5 mls/min IV NOW STA Stop: 07/10/24 15:02 Last Admin: 07/10/24 15:46 Dose: 2.5 mls/min Documented By: RENEE Sodium Chloride (Nss) 1,000 mls @ 999 mls/hr IV .Q1H1M ONE Stop: 07/10/24 16:02 Last Infusion: 07/10/24 18:32 Dose: Infused Documented By: CARLOS EDUARDO Admin: 07/10/24 15:47 Dose: 999 mls/hr Documented By: RENEE Sodium Chloride (Nss) 1,000 mls @ 999 mls/hr IV .Q1H1M ONE Stop: 07/10/24 18:38 Last Admin: 07/10/24 17:56 Dose: 999 mls/hr Documented By: CARLOS EDUARDO Ioversol (Optiray 320 100ml) 91 ml IV ONCE ONE Stop: 07/10/24 17:31 Last Admin: 07/10/24 17:30 Dose: 91 ml Documented By: BENOIT Ondansetron HCl (Ondansetron Inj 2 Mg/Ml 2 Ml Vial) 4 mg IV NOW STA Stop: 07/10/24 15:02 Last Admin: 07/10/24 15:46 Dose: 4 mg Documented By: LCD Imaging Data Radiologist's Impression: Abdomen/Pelvis CT 07/10/24 17:03 EXAM: CT Abdomen and Pelvis With Intravenous Contrast INDICATION: Upper abdominal pain and vomiting. TECHNIQUE: Axial computed tomography images of the abdomen and pelvis with intravenous contrast. Sagittal and coronal reformatted images were created and reviewed. This CT exam was performed using one or more of the following dose reduction techniques: automated exposure control, adjustment of the mA and/or kV according to patient size, and/or use of iterative reconstruction technique. CONTRAST: 91ml of Optiray 320 was administered intravenously. COMPARISON: No relevant prior studies available. FINDINGS: Limitations: None. Lung bases: No abnormality noted. Pleural space: No visualized pleural effusion or pneumothorax. Heart: No abnormality noted. Mediastinum: No abnormality noted. ABDOMEN: Liver: No abnormality noted. Gallbladder and bile ducts: Cholecystectomy. No ductal dilation or stone noted. Pancreas: Homogeneous enhancement. No mass, inflammation or ductal dilation. Spleen: No significant abnormality noted. Adrenals: No significant abnormality noted. Kidneys and ureters: Normal enhancement. No mass, hydronephrosis or visualized stone. Stomach and bowel: There is fluid throughout the intestinal tract without thickening, obstruction or inflammatory change in the adjacent mesentery. PELVIS: Appendix: Well seen and appears normal. Bladder: Incompletely distended and not optimally assessed. No gas or stone. Reproductive: No abnormalities noted. ABDOMEN and PELVIS: Intraperitoneal space: See above. Bones/joints: No acute changes. Soft tissues: No significant abnormality noted. Vasculature: No abdominal aortic aneurysm. Lymph nodes: No pathologically enlarged lymph nodes. IMPRESSION: 1. Mild nonspecific ileus. No inflammatory process or obstruction. 2. Poorly evaluated urinary bladder due to collapse. Correlate with urinalysis to exclude cystitis. ACT 112: Negative or not required by law. Electronically signed by Destini Nicholson 07-10-2024 5:49 PM Discharge Plan Visit Data Chief Complaint: Flu Like Symptoms Stated Complaint: VOMITING, DEHYDRATION, DIARRHEA ED Provider: Anh Katz Discharge Problem: Nausea, vomiting, and diarrhea, Acute dehydration, Gastroenteritis, Gastroenteritis due to norovirus Patient Disposition: Home - Self-Care Discharge Instructions Krames/Other Patient Handouts: Understanding Norovirus Activity Restrictions/Additional Instructions: Your laboratory workup in the emergency department showed that your white blood cell count, which is a marker of infection or elevation, was slightly elevated. This can be indicative of an infection or an inflammatory etiology, such as profuse vomiting and diarrhea. Your CT imaging showed inflammation of your bowel. No evidence of appendicitis or bowel obstruction. Your stool studies were positive for norovirus infection, which is a viral infection that can cause nausea, vomiting and diarrhea. Recommend staying well-hydrated over the next few days and slowly advancing her diet as tolerated. You can continue to use Zofran or dancer Bart for further nausea. Please return to the emergency department if you develop inability to tolerate oral intake, worsening abdominal pain, fever, pain, or any new or worsening symptoms. Recommend good handwashing, with soap and water, over the next few days. Forms Stand Alone Forms: [facility], Important Visit Information Prescriptions Prescriptions: No Action levothyroxine 25 mcg tablet 25 mcg PO DAILY albuterol sulfate 90 mcg/actuation HFA aerosol inhaler 2 puffs inhalation Q4H PRN (Reason: Shortness Of Breath) cetirizine 1 mg/mL solution 10 mg PO DAILY PRN (Reason: allergy symptoms) Qty: 300 5RF Vitamin B-12 1,500 mcg Tablet Extended Release 1,500 mcg PO DAILY meclizine 25 mg tablet 25 mg PO TID PRN (Reason: dizziness) Qty: 14 0RF ondansetron 4 mg tablet,disintegrating 4 mg PO Q6H PRN (Reason: nausea and vomiting) Qty: 14 0RF Referrals Referrals: Annabel Carolina MD [Primary Care Provider] -
[2024-07-10 18:45] LABS: Basophils # (auto) 0.01 K/uL (0.00-0.20); Basophils % (auto) 0.1 %; Eosinophils # (auto) 0.01 K/uL (0.00-0.50); Eosinophils % (auto) 0.1 %; Immature Granulocytes # (auto) 0.04 K/uL (0.01-0.20); Immature Granulocytes % (auto) 0.3 %; Lymphocytes # (auto) 0.27 K/uL (1.20-3.40); Lymphocytes % (auto) 1.8 %; Monocytes # (auto) 0.47 K/uL (0.11-0.59); Monocytes % (auto) 3.1 %; Neutrophils # (auto) 14.57 K/uL (1.40-6.50); Neutrophils % (auto) 94.6 %
[2024-07-10 18:48] LABS: Adenovirus PCR Not Detected (NotDetected); Bordetella parapertussis PCR Not Detected (NotDetected); Bordetella pertussis PCR Not Detected (NotDetected); Chlamydia pneumoniae PCR Not Detected (NotDetected); Coronavirus 229E PCR Not Detected (NotDetected); Coronavirus CoV-2 (COVID19)PCR Not Detected (NotDetected); Coronavirus HKU1 PCR Not Detected (NotDetected); Coronavirus NL63 PCR Not Detected (NotDetected); Coronavirus OC43PCR Not Detected (NotDetected); Human Metapneumovirus PCR Not Detected (NotDetected); Influenza A PCR Not Detected (NotDetected); Influenza B PCR Not Detected (NotDetected); Mycoplasma pneumoniae PCR Not Detected (NotDetected); Parainfluenza Virus 1 PCR Not Detected (NotDetected); Parainfluenza Virus 2 PCR Not Detected (NotDetected); Parainfluenza Virus 3 PCR Not Detected (NotDetected); Parainfluenza Virus 4 PCR Not Detected (NotDetected); Respiratory Syncytial VirusPCR Not Detected (NotDetected); Rhinovirus/Enterovirus PCR Not Detected (NotDetected)
[2024-07-10 19:06] LABS: Potassium 3.7 mmol/L (3.5-5.1)
--- NOTE | 2024-07-10 21:15 | History & Physical Report ---
Date of Service July 10, 2024 Assessment & Plan (1) Sepsis: Plan: Multifactorial: Cystitis Norovirus diarrheal illness bronchial asthma, stable hypothyroidism, currently not on maintenance medications, euthyroid PCU given tachycardia CS, Zosyn (history Enterococcus UTI as per outpatient records) DVT prophylaxis. Lovenox subcu Full code Text document was generated using Spottly voice recognition software. It may contain grammatical or spelling errors. Kindly contact undersigned for clarification of any documentation item in question. History of Present Illness Chief Complaint: Abdominal pain, nausea, vomiting diarrhea Primary Care Provider: Annabel Carolina MD History obtained from patient, family, and records. Medical history significant for bronchial asthma, hypothyroidism, migraine, IBS, chronic vertigo. Recent ER visit last week for vertigo symptoms. Patient discharged home on prednisone, Zofran, and meclizine medications. Improved symptoms. Patient woke up this morning with achy abdominal pain associated with nausea, emesis, watery diarrhea. Denies headache, chest pain, SOB. Denies dysuria symptoms. At the ER, patient felt like she was going to pass out. Chest tightness with SOB without cough symptoms. Ceftriaxone administered at the ER. Medical History as above Surgical History : Dental surgery, cholecystectomy, tonsillectomy/adenoidectomy Family History : IBD, heart disease, aneurysm Personal/Social history : Non-smoker, no EtOH intake, unemployed, lives with mother Allergies Allergy/AdvReac Type Severity Reaction Status Date / Time coconut Allergy Unknown UNKNOWN Unverified 09/10/20 13:00 egg Allergy Unknown UNKNOWN Unverified 09/10/20 13:00 lactose Allergy Unknown UNKNOWN Unverified 09/10/20 13:00 peanut Allergy Unknown UNKNOWN Unverified 09/10/20 13:00 soy Allergy Unknown UNKNOWN Unverified 09/10/20 13:00 wheat Allergy Unknown UNKNOWN Unverified 09/10/20 13:00 almond Allergy Verified 09/10/20 13:00 ibuprofen AdvReac Intermediate RASH/HIVES Unverified 09/10/20 13:00 polyethylene glycol AdvReac Intermediate CHEST Unverified 09/10/20 13:00 PAINS/NAUSEA Past Med/Surg History Problem List (Updated 07/11/24 @ 10:23 by Han Bauer MD) Sepsis Gastroenteritis due to norovirus (Acute) Gastroenteritis (Acute) Acute dehydration (Acute) Nausea, vomiting, and diarrhea (Acute) Nausea (Acute) Dehydration (Acute) Vertigo (Acute) Dysmenorrhea (Acute) Lactose intolerance Depression GERD (gastroesophageal reflux disease) Irritable bowel syndrome (IBS) Migraine headache Asthma Generalized anxiety disorder Hypothyroidism (Chronic) Orthostatic hypotension Medical History Goiter Rash Abigail's thyroiditis Surgical History H/O colonoscopy (02/2019) Dr. Leyva Hx of esophagogastroduodenoscopy (02/2019) Dr. Leyva Hx of cholecystectomy History of tonsillectomy and adenoidectomy Family History Mother Crohn's disease Father Mitral valve prolapse Social History Smoking Status: Never smoker Hx Alcohol Use: No Hx Substance Use: No Preferred Language: Central [place] Communication Ability: Effective Nonprofit Financial Controller Required: No Beliefs That Will Affect Care: None Current Living Situation: Family Feels Safe at Home: Yes Safety Concerns: Feels Safe At This Time Assistive Devices: Glasses Review of Systems Review of Systems: As per HPI, all other systems reviewed and negative Physical Exam Physical Exam: GENERAL: uncomfortable, anxious, no respiratory distress SKIN: Normal color, warm HEENT: Mears palpebral conjunctivae, no ptosis, dry buccal mucosa NECK : Supple, no tenderness CHEST : CTA, no tenderness HEART : Tachycardic, no obvious murmurs ABDOMEN: Some distention, central abdominal tenderness EXTREMITIES : Minimal LE swelling, no LE tenderness, no other conspicuous deformities noted NEUROLOGIC : Coherent, no facial asymmetry, no other gross focality Results & Data Results & Data Vital Signs (Past 12 Hours) Vital Signs Temp Pulse Pulse Resp BP BP Pulse Ox 07/10/24 21:01 122 H 14 112/78 98 07/10/24 20:45 124 H 16 112/78 97 07/10/24 20:33 36.9 C 145 H 22 108/84 99 07/10/24 19:54 109 H 14 124/80 99 07/10/24 19:39 106 H 24 118/80 100 07/10/24 19:03 101 H 14 125/90 99 07/10/24 18:27 106 H 17 116/82 100 07/10/24 18:12 113 H 07/10/24 17:35 98 07/10/24 15:00 36.6 C 121 H 18 123/76 98 O2 Del Method 07/10/24 21:01 Room Air 07/10/24 20:45 07/10/24 20:33 Room Air 07/10/24 19:54 07/10/24 19:39 07/10/24 19:03 07/10/24 18:27 07/10/24 18:12 07/10/24 17:35 Room Air 07/10/24 15:00 Room Air Laboratory Results Laboratory Results WBC 15.37 K/ul (4.8-10.8) H 07/10/24 18:07 RBC 4.90 M/uL (4.20-5.40) 07/10/24 18:07 Hgb 14.8 g/dl (12.0-16.0) 07/10/24 18:07 Hct 44.1 % (37.0-47.0) 07/10/24 18:07 MCV 90.0 fL (80.0-100.0) 07/10/24 18:07 MCH 30.2 pg (25.0-34.0) 07/10/24 18:07 MCHC 33.6 g/dL (32.0-36.0) 07/10/24 18:07 RDW Std Deviation 40.2 fL (36.4-46.3) 07/10/24 18:07 RDW Coeff of Jena 12.3 % (11.5-14.5) 07/10/24 18:07 Plt Count 187 K/uL (130-400) 07/10/24 18:07 MPV 12.3 fL (9.4-12.4) 07/10/24 18:07 Immature Gran % (Auto) 0.3 % 07/10/24 18:07 Neut % (Auto) 94.6 % 07/10/24 18:07 Lymph % (Auto) 1.8 % 07/10/24 18:07 [place] % (Auto) 3.1 % 07/10/24 18:07 Eos % (Auto) 0.1 % 07/10/24 18:07 Baso % (Auto) 0.1 % 07/10/24 18:07 Neut # (Auto) 14.57 K/uL (1.40-6.50) H 07/10/24 18:07 Lymph # (Auto) 0.27 K/uL (1.20-3.40) L 07/10/24 18:07 [place] # (Auto) 0.47 K/uL (0.11-0.59) 07/10/24 18:07 Eos # (Auto) 0.01 K/uL (0.00-0.50) 07/10/24 18:07 Baso # (Auto) 0.01 K/uL (0.00-0.20) 07/10/24 18:07 Immature Gran # (Auto) 0.04 K/uL (0.01-0.20) 07/10/24 18:07 Absolute Nucleated RBC Cancelled 07/10/24 15:40 Nucleated RBC % (auto) Cancelled 07/10/24 15:40 Neutrophils % (Manual) Cancelled 07/10/24 15:40 Band Neutrophils % Cancelled 07/10/24 15:40 Lymphocytes % (Manual) Cancelled 07/10/24 15:40 Prolymphocyte % Cancelled 07/10/24 15:40 Reactive Lymphs % (Man) Cancelled 07/10/24 15:40 Monocytes % (Manual) Cancelled 07/10/24 15:40 Eosinophils % (Manual) Cancelled 07/10/24 15:40 Basophils % (Manual) Cancelled 07/10/24 15:40 Metamyelocytes % (Man) Cancelled 07/10/24 15:40 Myelocytes % (Man) Cancelled 07/10/24 15:40 Promyelocytes % (Man) Cancelled 07/10/24 15:40 Blast Cells % (Manual) Cancelled 07/10/24 15:40 Plasma Cell % (Manual) Cancelled 07/10/24 15:40 Other Cells % Cancelled 07/10/24 15:40 Nucleated RBC % Cancelled 07/10/24 15:40 Neutrophils # (Manual) Cancelled 07/10/24 15:40 Band Neutrophils # Cancelled 07/10/24 15:40 Total Absolute Neuts Cancelled 07/10/24 15:40 Lymphocytes # (Manual) Cancelled 07/10/24 15:40 Prolymphocyte # Cancelled 07/10/24 15:40 Reactive Lymphs # Cancelled 07/10/24 15:40 Total Abs Lymphocytes Cancelled 07/10/24 15:40 Monocytes # (Manual) Cancelled 07/10/24 15:40 Eosinophils # (Manual) Cancelled 07/10/24 15:40 Basophils # (Manual) Cancelled 07/10/24 15:40 Metamyelocytes # (Man) Cancelled 07/10/24 15:40 Myelocytes # (Manual) Cancelled 07/10/24 15:40 Promyelocytes # (Man) Cancelled 07/10/24 15:40 Blast Cells # (Man) Cancelled 07/10/24 15:40 Plasma Cell # (Manual) Cancelled 07/10/24 15:40 Other Cells # Cancelled 07/10/24 15:40 Nucleated RBCs # (Man) Cancelled 07/10/24 15:40 Hypersegmented Neuts Cancelled 07/10/24 15:40 Hyposegmented Neuts Cancelled 07/10/24 15:40 Hypogranular Neuts Cancelled 07/10/24 15:40 Large Granular Lymphs Cancelled 07/10/24 15:40 # Lrg Granular Lymphs Cancelled 07/10/24 15:40 Hairy Cells Cancelled 07/10/24 15:40 Smudge Cells Cancelled 07/10/24 15:40 Toxic Granulation Cancelled 07/10/24 15:40 Toxic Vacuolation Cancelled 07/10/24 15:40 Dohle Bodies Cancelled 07/10/24 15:40 Madhu Rods Cancelled 07/10/24 15:40 Platelet Estimate Cancelled 07/10/24 15:40 Hypogranular Platelets Cancelled 07/10/24 15:40 Giant Platelets Cancelled 07/10/24 15:40 Platelet Satelliting Cancelled 07/10/24 15:40 RBC Morphology Cancelled 07/10/24 15:40 Polychromasia Cancelled 07/10/24 15:40 Hypochromasia Cancelled 07/10/24 15:40 Poikilocytosis Cancelled 07/10/24 15:40 Basophilic Stippling Cancelled 07/10/24 15:40 Anisocytosis Cancelled 07/10/24 15:40 Microcytosis Cancelled 07/10/24 15:40 Macrocytosis Cancelled 07/10/24 15:40 Spherocytes Cancelled 07/10/24 15:40 Pappenheimer Bodies Cancelled 07/10/24 15:40 Sickle Cells Cancelled 07/10/24 15:40 Target Cells Cancelled 07/10/24 15:40 Tear Drop Cells Cancelled 07/10/24 15:40 Ovalocytes Cancelled 07/10/24 15:40 Stomatocytes Cancelled 07/10/24 15:40 [place] Bodies Cancelled 07/10/24 15:40 Echinocytes Cancelled 07/10/24 15:40 Acanthocytes (Spur) Cancelled 07/10/24 15:40 Rouleaux Cancelled 07/10/24 15:40 RBC Agglutinates Cancelled 07/10/24 15:40 Schistocytes Cancelled 07/10/24 15:40 Sezary Cell Cancelled 07/10/24 15:40 Sodium 138 mmol/L (136-145) 07/10/24 15:40 Potassium 3.7 mmol/L (3.5-5.1) 07/10/24 18:43 Chloride 107 mmol/L (98-107) 07/10/24 15:40 Carbon Dioxide 19 mmol/L (21-32) L 07/10/24 15:40 Anion Gap 12 (3-11) H 07/10/24 15:40 BUN 16 mg/dl (6-23) 07/10/24 15:40 Creatinine 0.75 mg/dl (0.6-1.2) 07/10/24 15:40 Est Cr Clr Drug Dosing Not Reportable 07/10/24 15:40 eGFR 108.41 07/10/24 15:40 BUN/Creatinine Ratio 21.3 (10-20) H 07/10/24 15:40 Glucose 116 mg/dl (70-99(Fasting)) H 07/10/24 15:40 Calcium 9.5 mg/dl (8.6-10.3) 07/10/24 15:40 Total Bilirubin 0.9 mg/dl (0.2-1.0) 07/10/24 15:40 AST 21 U/L (13-39) 07/10/24 18:43 ALT 40 U/L (7-52) 07/10/24 15:40 Alkaline Phosphatase 82 U/L (34-104) 07/10/24 15:40 Total Protein 7.7 gm/dl (6.0-8.3) 07/10/24 15:40 Albumin 4.9 gm/dl (3.4-5.0) 07/10/24 15:40 Globulin 2.8 gm/dl (2.5-4.0) 07/10/24 15:40 Albumin/Globulin Ratio 1.8 (0.9-2) 07/10/24 15:40 Lipase 10 U/L (11-82) L 07/10/24 15:40 HCG, Qual Negative (Negative) 07/10/24 15:40 Urine Color Yellow 07/10/24 16:08 Urine Appearance Cloudy (Clear) A 07/10/24 16:08 Urine pH 5.5 (4.5-7.5) 07/10/24 16:08 Ur Specific [place] 1.033 (1.000-1.030) H 07/10/24 16:08 Urine Protein 2+ (Negative) H 07/10/24 16:08 Urine Glucose (UA) Negative (Negative) 07/10/24 16:08 Urine Ketones 3+ (Negative) H 07/10/24 16:08 Urine Blood 3+ (Negative) H 07/10/24 16:08 Urine Nitrite Negative (Negative) 07/10/24 16:08 Urine Bilirubin Negative (Negative) 07/10/24 16:08 Urine Urobilinogen Negative (Negative) 07/10/24 16:08 Ur Leukocyte Esterase 2+ (Negative) H 07/10/24 16:08 Urine WBC (Auto) 21-50 /hpf (0-5) H 07/10/24 16:08 Urine RBC (Auto) >20 /hpf (0-2) H 07/10/24 16:08 U Hyaline Cast (Auto) 0-2 /lpf (0-2) 07/10/24 16:08 U Epithel Cells (Auto) 11-20 /hpf (0-2) H 07/10/24 16:08 Urine Bacteria (Auto) 2+ (None Seen) H 07/10/24 16:08 Urine Mucus Present (None Prsent) A 07/10/24 16:08 Stl C. cayetanensis PCR Not Detected (NotDetected) 07/10/24 16:08 Stool Rotavirus A PCR Not Detected (NotDetected) 07/10/24 16:08 Stl Adenov F 40/41 PCR Not Detected (NotDetected) 07/10/24 16:08 Stool Astrovirus (PCR) Not Detected (NotDetected) 07/10/24 16:08 Stool Campylobacter PCR Not Detected (NotDetected) 07/10/24 16:08 Stool Cryptosporidium PCR Not Detected (NotDetected) 07/10/24 16:08 Stl E.coli Shiga Tox PCR Not Detected (NotDetected) 07/10/24 16:08 Stl Enterotoxigenic E PCR Not Detected (NotDetected) 07/10/24 16:08 Stool EPEC (PCR) Not Detected (NotDetected) 07/10/24 16:08 Stool EAEC (PCR) Not Detected (NotDetected) 07/10/24 16:08 Stl E. histolytica PCR Not Detected (NotDetected) 07/10/24 16:08 Stool Giardia Lamblia PCR Not Detected (NotDetected) 07/10/24 16:08 Stool Salmonella PCR Not Detected (NotDetected) 07/10/24 16:08 Stool Sapovirus (PCR) Not Detected (NotDetected) 07/10/24 16:08 Stl P. shigelloides PCR Not Detected (NotDetected) 07/10/24 16:08 Stl Shigella/EIEC PCR Not Detected (NotDetected) 07/10/24 16:08 St Y.enterocolitica PCR Not Detected (NotDetected) 07/10/24 16:08 Stool Vibrio (PCR) Not Detected (NotDetected) 07/10/24 16:08 Stl Vibrio cholerae PCR Not Detected (NotDetected) 07/10/24 16:08 Stl Norovirus GI/GII PCR DETECTED (NotDetected) A* 07/10/24 16:08 Adenovirus (PCR) Not Detected (NotDetected) 07/10/24 17:49 B. pertussis DNA (PCR) Not Detected (NotDetected) 07/10/24 17:49 B.parapertussis DNA PCR Not Detected (NotDetected) 07/10/24 17:49 C. pneumoniae DNA (PCR) Not Detected (NotDetected) 07/10/24 17:49 Coronavirus OC43 (PCR) Not Detected (NotDetected) 07/10/24 17:49 Coronavirus HKU1 (PCR) Not Detected (NotDetected) 07/10/24 17:49 Coronavirus 229E (PCR) Not Detected (NotDetected) 07/10/24 17:49 SARS-CoV-2 (PCR) Not Detected (NotDetected) 07/10/24 17:49 Coronavirus NL63 (PCR) Not Detected (NotDetected) 07/10/24 17:49 Human Metapneumovir PCR Not Detected (NotDetected) 07/10/24 17:49 Influenza Type A (PCR) Not Detected (NotDetected) 07/10/24 17:49 Influenza Type B (PCR) Not Detected (NotDetected) 07/10/24 17:49 M. pneumoniae (PCR) Not Detected (NotDetected) 07/10/24 17:49 Parainfluenza 1 (PCR) Not Detected (NotDetected) 07/10/24 17:49 Parainfluenza 2 (PCR) Not Detected (NotDetected) 07/10/24 17:49 Parainfluenza 3 (PCR) Not Detected (NotDetected) 07/10/24 17:49 Parainfluenza 4 (PCR) Not Detected (NotDetected) 07/10/24 17:49 RSV (PCR) Not Detected (NotDetected) 07/10/24 17:49 Entero/Rhino (PCR) Not Detected (NotDetected) 07/10/24 17:49 Blood Parasites ID Cancelled 07/10/24 15:40 Impressions Abdomen/Pelvis CT 07/10/24 17:03 EXAM: CT Abdomen and Pelvis With Intravenous Contrast INDICATION: Upper abdominal pain and vomiting. TECHNIQUE: Axial computed tomography images of the abdomen and pelvis with intravenous contrast. Sagittal and coronal reformatted images were created and reviewed. This CT exam was performed using one or more of the following dose reduction techniques: automated exposure control, adjustment of the mA and/or kV according to patient size, and/or use of iterative reconstruction technique. CONTRAST: 91ml of Optiray 320 was administered intravenously. COMPARISON: No relevant prior studies available. FINDINGS: Limitations: None. Lung bases: No abnormality noted. Pleural space: No visualized pleural effusion or pneumothorax. Heart: No abnormality noted. Mediastinum: No abnormality noted. ABDOMEN: Liver: No abnormality noted. Gallbladder and bile ducts: Cholecystectomy. No ductal dilation or stone noted. Pancreas: Homogeneous enhancement. No mass, inflammation or ductal dilation. Spleen: No significant abnormality noted. Adrenals: No significant abnormality noted. Kidneys and ureters: Normal enhancement. No mass, hydronephrosis or visualized stone. Stomach and bowel: There is fluid throughout the intestinal tract without thickening, obstruction or inflammatory change in the adjacent mesentery. PELVIS: Appendix: Well seen and appears normal. Bladder: Incompletely distended and not optimally assessed. No gas or stone. Reproductive: No abnormalities noted. ABDOMEN and PELVIS: Intraperitoneal space: See above. Bones/joints: No acute changes. Soft tissues: No significant abnormality noted. Vasculature: No abdominal aortic aneurysm. Lymph nodes: No pathologically enlarged lymph nodes. IMPRESSION: 1. Mild nonspecific ileus. No inflammatory process or obstruction. 2. Poorly evaluated urinary bladder due to collapse. Correlate with urinalysis to exclude cystitis. ACT 112: Negative or not required by law. Electronically signed by Destini Nicholson 07-10-2024 5:[address] chest: No pulmonary embolus. No acute finding. Diagnostic Findings EKG as per my interpretation :Rate 110, sinus tachycardia, normal axis, diffuse T wave abnormalities
[2024-07-10 21:34] LABS: Base Excess VBG -3.8 mEq/L; HCO3 VBG 19 mmol/L; Oxygen Saturation VBG 64.8 %; PCO2 VBG 27 mmHg (38-50); PO2 VBG 34 mmHg; pH VBG 7.45 (7.36-7.41)
[2024-07-10] MEDS: POTASSIUM CHLORIDE PWD 20 MEQ PACK PO STA (21:35)
[2024-07-10 21:55] LABS: Magnesium 1.7 mg/dl (1.7-2.4)
[2024-07-10] MEDS ORDERED: KETOROLAC TROMETHAMINE 15 MG/ML VIAL IV PRN (21:56)
[2024-07-10] MEDS ORDERED: oxyCODONE HCL IR 5 MG TAB (IMMEDIATE RELEASE) PO PRN (21:56)
[2024-07-10] MEDS ORDERED: PROMETHAZINE 12.5 MG/50.5 ML BAG IV PRN (21:56)
[2024-07-10 22:02] LABS: Troponin I High Sensitivity 4.8 pg/ml (0-14)
[2024-07-10] MEDS: PIPERACILLIN/TAZOBACTAM 4.5 GM/100 ML BAG IV SCH (22:05)
[2024-07-10 22:12] LABS: Thyroid Stimulating Hormone 0.889 uIu/ml (0.300-4.500)
[2024-07-10 22:15] LABS: Partial Thromboplastin Ratio 0.9; Partial Thromboplastin Time 24 Seconds (21-31)
[2024-07-10] MEDS: LORazepam 0.5 MG TAB PO STA (22:32)
[2024-07-10] MEDS: OPTIRAY 320 125ml IV ONE (22:56)
[2024-07-10] MEDS: MAGNESIUM SULFATE / D5W 1 GM/100 ML BAG IV SCH (23:12)
[2024-07-11] MEDS: POTASSIUM CHLORIDE 20 MEQ in PLASMA-LYTE A 1,000 ML IV ONE (00:09)
--- NOTE | 2024-07-11 00:27 | XRay Report ---
Exam(s): XR CXR 1 VIEW EXAM: XR Chest, 1 View CLINICAL HISTORY: Reason for exam: tachy sepsis. TECHNIQUE: Frontal view of the chest. COMPARISON: Prior chest x-ray from March 14, 2012. FINDINGS: Lungs: Unremarkable. No consolidation. Pleural space: Unremarkable. No pneumothorax. Heart: Unremarkable. No cardiomegaly. Mediastinum: Unremarkable. Normal mediastinal contour. Bones/joints: Unremarkable. No acute fracture. IMPRESSION: No evidence of acute cardiopulmonary process. Electronically signed by: Caprice Khan MD 07/11/24 00:26 AM
--- NOTE | 2024-07-11 00:40 | CT Scan Report ---
Exam(s): CTA CHEST IV Amt: 118 ml optiray 320 EXAM: CT Angiography Chest With Intravenous Contrast CLINICAL HISTORY: Chest Pain. TECHNIQUE: Axial computed tomographic angiography images of the chest with intravenous contrast. MIPS images were created and reviewed. CTDI is 26. 03 mGy and DLP is 851.08 mGy-cm. Automated exposure control was utilized for the study. A dose lowering technique was utilized adhering to the principles of ALARA. MIP reconstructed images were created and reviewed. COMPARISON: No relevant prior studies available. FINDINGS: Pulmonary arteries: Unremarkable. No pulmonary embolus. Aorta: No acute findings. No thoracic aortic aneurysm. Lungs: Unremarkable. No mass. No consolidation. Pleural space: Unremarkable. No significant effusion. No pneumothorax. Heart: Unremarkable. No cardiomegaly. No significant pericardial effusion. No evidence of RV dysfunction. Bones/joints: No acute fracture. No dislocation. Soft tissues: Unremarkable. Lymph nodes: Unremarkable. No enlarged lymph nodes. IMPRESSION: No pulmonary embolus. No acute finding. Electronically signed by: Jennifer Powell MD 07/11/24 00:38 AM
[2024-07-11] MEDS: ACETAMINOPHEN 325 MG TAB PO PRN (01:23)
[2024-07-11 02:18] LABS: Adenovirus F 40/41 PCR Not Detected (NotDetected); Astrovirus PCR Not Detected (NotDetected); Campylobacter PCR Not Detected (NotDetected); Cryptosporidium PCR Not Detected (NotDetected); Cyclospora cayetanensis PCR Not Detected (NotDetected); Entamoeba histolytica PCR Not Detected (NotDetected); Enteroaggregative E.coli(EAEC) Not Detected (NotDetected); Enteropathogenic E.coli (EPEC) Not Detected (NotDetected); Enterotoxigenic E.coli (ETEC) Not Detected (NotDetected); Giardia lamblia PCR Not Detected (NotDetected); Plesiomonas shigelloides PCR Not Detected (NotDetected); Rotavirus A PCR Not Detected (NotDetected); Salmonella PCR Not Detected (NotDetected); Sapovirus PCR Not Detected (NotDetected); Shiga-like Toxin E.coli (STEC) Not Detected (NotDetected); Shigella/Enteroinvasive E.coli Not Detected (NotDetected); Vibrio cholerae PCR Not Detected (NotDetected); Vibrio species PCR Not Detected (NotDetected); Yersinia enterocolitica PCR Not Detected (NotDetected)
[2024-07-11 02:20] LABS: Norovirus GI/GII PCR DETECTED (NotDetected)
--- OUTSIDE RECORDS SUMMARY | 2024-07-11 04:51 | External Medical Summary | Summary of Care ---
Author Name Unknown Organization [facility] Address [address] [facility] [place] [address] Phone [phone] Care Team Providers Care Butter Liquefier Name Role Phone Annabel Carolina MD Primary Care Provide r Encounter Details Date Type Department Care Team (Late st Contact Info) Description 07/03/2024 Result Scan Unspecified Department <No scans attached> Allergies Active Allergy Reactions Criticality Noted Date Comments Flax Seed Oil Diarrhea,Nausea/vomi ting 02/14/2014 Food (See Comments) Other (Please comment) 02/20/2014 Soy, Binger, Peanuts, Almonds, Dairy/Lactose Intolerance potatoes Iodine Itching Medium 10/02/2021 Per Pt she had CT done yrs ago and gasped for breathe for second and then was very itchy after injection. Polyethylene Glycol Nausea/vomiting 08/27/2014 Wheat Diarrhea,Nausea/vomi ting 02/14/2014 Sertraline Hcl 05/23/2018 Panic attack documented as of this encounter (statuses as of 07/05/2024) Medications Vitamin B-12 1000 MCG Oral TabletIndication s:1500 gummy Taking 1500 mcg per week Indications : 1500 gummy 05/23/2020 Active documented as of this encounter (statuses as of 07/05/2024) Active Problems Problem Noted Date Diagnosed Date Raynaud's phenomenon without gangrene 06/05/2021 B12 deficiency 02/13/2019 Vitamin D deficiency 02/13/2019 Multiple chemical sensitivity syndrome 8 Panic attack 05/03/2018 Anxiety with depression 02/10/2018 Abigail's thyroiditis 2017 Fibromyalgia 09/18/2015 Chronic fatigue syndrome 04/30/2015 Lactose intolerance 12/12/2012 Adverse food reaction 12/12/2012 Overview (12/12/2012): wheat - joints ache; GI bloating, cramping flaxseed - itching cheeks, mouth, tongue Allergic rhinitis 12/12/2012 Esophageal reflux 05/19/2011 Dysmenorrhea 02/17/2011 Intermittent asthma with reliever use up to twic e per week 01/15/2010 Overview (01/15/2010): Per Asthma Taxonomy Migraine 09/28/2005 S/P cholecystectomy documented as of this encounter (statuses as of 07/05/2024) Resolved Problems Problem Noted Date Diagnosed Date Resolved Date Acquired hypothyroidism 02/07/201705/25 Orthostatic hypotension 09/19/201404/24 Shivering 02/20/2014 04/30/2015 Conjunctivitis, allergic 12/12/2012 EXTRINSIC ASTHMA, UNSPEC 02/18/2004 NO KNOWN PROBLEMS 01/03/2012 documented as of this encounter (statuses as of 07/05/2024) Immunizations Name Administration Dates Next Due Meningococcal Conjugate Vacc ine (Menactra/Menveo) 08/27/2010(Deferred: Patient Refused) Seasonal Influenza Vac., MDV , IM, 0.5 mL (Fluzone) 07/25/2013 TDAP, Age 7 and older, IM (Adacel) 01/21/2004 documented as of this encounter Social History Tobacco Use Types Packs/Day Years Used Date Smoking Tobacco: Never Smokeless Tobacco: Never Comments:no passive smoke Alcohol Use Standard Drinks/Week Comments No 0 (1 standard drink = 0.6 oz pur e alcohol) PHQ-2 Answer Date Recorded PHQ-2 Score 0 05/23/2020 Hunger Vital Sign Answer Date Recorded Worried About Running Out of Food in the Last Ye ar Never true 04/17/2019 Ran Out of Food in the Last Year Never true 04/17/2019 Utilities Answer Date Recorded Do you have trouble paying y our heating, water, or electric bill? (Adult - for ages 18 years and over) Not on file 01/10/2024 Is your family able to pay t he heat, water, or electric bill? (Household - for ages 0-17 years) Not on file 01/10/2024 Does your family have access to good internet? (Household - for ages 0-17 years) Not on file 01/10/2024 Social Connections Answer Date Recorded How often do you feel lonely or isolated from those around you? (Adult - for ages 18 years and over) Not on file 01/10/2024 Comments No Sex and Gender Information Value Date Recorded Sex Assigned at Not on file Legal Sex Female 6:03 AM EST Gender Identity Not on file Sexual Orientation Not on file documented as of this encounter Plan of Treatment Upcoming Encounters Date Type Department Care Team (Late st Contact Info) Description 07/06/2024 11:40 AM EST Office Visit Family Medicine [address] [place] [address] Annabel Carolina MD [address] [place] [address] [place] [phone] Health Maintenance Due Date Last Done Comments Pneumococcal Vaccine: Pediatrics (0 to 5 Years) and At-Risk Patients (6 to 64 Years) (1 of 2 - PCV) 02/24/1998 HIV Screening 02/24/2007 Hepatitis C Screening 02/24/2010 DTap/Tdap Vaccines (8 - Td or Tdap) 01/20/2014 01/21/2004, 01/21/2004, 03/08/1996, Additional history exists Pap Smear 02/10/2021 02/10/2018 (Refused) Depression Monitoring 05/23/2021 05/23/2020 Cervical Cancer Screening 02/24/2022 HPV/Co-Test 02/24/2022 COVID-19 Vaccine ( season) 2024 Influenza Vaccine (FLU shot) (#1) 2024 07/25/2013 Hepatitis B Vaccine Completed 1992, 1992, 1992 HPV (Gardasil) Vaccine Aged Out No lo nger eligible based on patient's age to complete this topic MENINGOCOCCAL (MENACTRA/MENVEO) Aged Out No longer eligible based on patient's age to complete this topic documented as of this encounter Medical Devices Not on filedocumented as of this encounter Procedures Procedure Name Priority Date/Time Associated Diagnosis Comments EKG SCANNED RESULT 07/03/2024 EKG SCANNED RESULT 07/03/2024 RADIOLOGY SCANNED RESULT 07/03/2024 RADIOLOGY SCANNED RESULT 07/03/2024 RADIOLOGY SCANNED RESULT 07/03/2024 documented in this encounter Results * RADIOLOGY SCANNED RESULT (07/03/2024) 07/03/2024 us No Physician Data Unknown DIAGNOSTIC RADIOLOGY S ERVICES Final Result * RADIOLOGY SCANNED RESULT (07/03/2024) 07/03/2024 us No Physician Data Unknown DIAGNOSTIC RADIOLOGY S ERVICES Final Result * RADIOLOGY SCANNED RESULT (07/03/2024) 07/03/2024 us No Physician Data Unknown DIAGNOSTIC RADIOLOGY S ERVICES Final Result * EKG SCANNED RESULT (07/03/2024) 07/03/2024 us No Physician Data Unknown EKG Final Result * EKG SCANNED RESULT (07/03/2024) 07/03/2024 us No Physician Data Unknown EKG Final Result documented in this encounter Care Teams Butter Liquefier Relationship Specialty Start Date End Date Annabel Carolina MD [address] [place] [address] [place] [phone] PCP - General Family Medicine 10/02/18 documented as of this encounter
--- OUTSIDE RECORDS SUMMARY | 2024-07-11 04:51 | External Medical Summary | Summary of Care ---
Author Name Unknown Organization [facility] Address [address] [facility] [place] [address] Phone [phone] Care Team Providers Care Barrel Driller Name Role Phone Annabel Carolina MD Primary Care Provide r Reason for Visit * Reason Onset Date Comments Encounter Created in Error 07/09/2024 Encounter Details Date Type Department Care Team (Late st Contact Info) Description 07/09/2024 Telephone Family Medicine [address] [phone] Annabel Carolina MD [address] [place] [address] [place] [address] Encounter Created in Error Allergies Active Allergy Reactions Criticality Noted Date Comments Flax Seed Oil Diarrhea,Nausea/vomi ting 02/14/2014 Food (See Comments) Other (Please comment) 02/20/2014 Soy, [place], Peanuts, Almonds, Dairy/Lactose Intolerance potatoes Iodine Itching Medium 10/02/2021 Per Pt she had CT done yrs ago and gasped for breathe for second and then was very itchy after injection. Polyethylene Glycol Nausea/vomiting 08/27/2014 Wheat Diarrhea,Nausea/vomi ting 02/14/2014 Sertraline Hcl 05/23/2018 Panic attack documented as of this encounter (statuses as of 07/09/2024) Medications Vitamin B-12 1000 MCG Oral TabletIndication s:1500 gummy Taking 1500 mcg per week Indications : 1500 gummy 05/23/2020 Active documented as of this encounter (statuses as of 07/09/2024) Active Problems Problem Noted Date Diagnosed Date [...] as of this encounter (statuses as of 07/09/2024) Resolved Problems Problem Noted Date Diagnosed Date Resolved Date Acquired hypothyroidism 02/07/201705/25 Orthostatic hypotension 09/19/201404/24 Shivering 02/20/2014 04/30/2015 Conjunctivitis, allergic 12/12/2012 EXTRINSIC ASTHMA, UNSPEC 02/18/2004 NO KNOWN PROBLEMS 01/03/2012 documented as of this encounter (statuses as of 07/09/2024) Immunizations Name Administration Dates Next Due Meningococcal [...] in the Last Year Never true 04/17/2019 Comments No Sex and Gender Information Value Date Recorded Sex Assigned at Not on file Legal Sex Female 6:03 AM EST Gender Identity Not on file Sexual Orientation Not on file documented as of this encounter Plan of Treatment Upcoming Encounters Date Type Department Care Team (Late st Contact Info) Description 10/10/2024 12:40 PM EDT Office Visit Family Medicine [address] [place] [phone] Stephanie Arrieta PA-C [address] [place] [address] [place] [phone] Health Maintenance Due Date Last Done Comments [...] Not on filedocumented as of this encounter Care Teams Barrel Driller Relationship Specialty Start Date End Date Annabel Carolina MD [address] [place] [address] [place] [phone] PCP - General Family Medicine 10/02/18 documented as of this encounter
--- OUTSIDE RECORDS SUMMARY | 2024-07-11 04:51 | External Medical Summary | Summary of Care ---
Author Name Unknown Organization [facility] Address [address] [place] [address] Phone [phone] Care Team Providers Care Press Set Up Name Role Phone Annabel Carolina MD Primary Care Provide r Reason for Referral * Evaluate & Treat - Unlimited Visits (Within 10 days (routine)) - Authorized Specialty Diagnoses / Procedures Referred By Contac lovely Referred To Contact Otolaryngology Diagnoses Vertigo Tinnitus of both ears Bilateral hearing loss, unspecified hearing loss type Annabel Carolina MD [address] [place] [address] [place] [phone] Phone: tel: fax: Referral ID Status Reason Start Date Expiration Date Visits Requested Visits Authorized [id number] Authorized Specialty Services Required [phone] Question Answer Referral Priority Within 10 days (routine) Where should this appointment be scheduled? External Reason for Referral Other Using "other" may delay scheduling. Only use it if no appropriate choice exists. Acknowledge Please provide more details: severe vertigo, tinnitus, and ?hearing loss. ?Meniere's disease? Comments [place] if possible Reason for Visit * Reason Comments Emergency Department Follow-Up Encounter Details Date Type Department Care Team (Late st Contact Info) Description 07/06/2024 11:00 AM EST Telemedicine Family Medicine [address] [place] [phone] Annabel Carolina MD [address] [place] [address] [place] [address] Vertigo*; Tinnitus of both ears; Bilateral hearing loss, unspecified hearing loss type Allergies Active Allergy Reactions Criticality Noted Date Comments Flax Seed Oil Diarrhea,Nausea/vomi ting 02/14/2014 Food (See Comments) Other (Please comment) 02/20/2014 Soy, [place], Peanuts, Almonds, Dairy/Lactose Intolerance potatoes Iodine Itching Medium 10/02/2021 Per Pt she had CT done yrs ago and gasped for breathe for second and then was very itchy after injection. Polyethylene Glycol Nausea/vomiting 08/27/2014 Wheat Diarrhea,Nausea/vomi ting 02/14/2014 Sertraline Hcl 05/23/2018 Panic attack documented as of this encounter (statuses as of 07/06/2024) Medications Vitamin B-12 1000 MCG Oral TabletIndication s:1500 gummy Taking 1500 mcg per week Indications : 1500 gummy 05/23/2020 Active documented as of this encounter (statuses as of 07/06/2024) Active Problems Problem Noted Date Diagnosed Date [...] as of this encounter (statuses as of 07/06/2024) Resolved Problems Problem Noted Date Diagnosed Date Resolved Date Acquired hypothyroidism 02/07/201705/25 Orthostatic hypotension 09/19/201404/24 Shivering 02/20/2014 04/30/2015 Conjunctivitis, allergic 12/12/2012 EXTRINSIC ASTHMA, UNSPEC 02/18/2004 NO KNOWN PROBLEMS 01/03/2012 documented as of this encounter (statuses as of 07/06/2024) Immunizations Name Administration Dates Next Due Meningococcal [...] on file documented as of this encounter Progress Notes * Annabel Carolina MD - 07/06/2024 11:09 AM EST Subjective: Jessie Louie is a 34 year old female. Chief Complaint Patient presents with Emergency Department Follow-Up HPI: Brief Clinical History Ms. Louie is a 34 year old female last seen in Family Medicine [facility] on 09/30/2022 by Stephanie Arrieta She has a h/o the following chronic conditions indicated on the problem list: Chronic Conditions Intermittent asthma with reliever use up to twice per week Patient location: HOME. I was in a hospital or clinic location. After connecting through [employer],patient was verified with two unique identifiers. Patient (or authorized legal maintenance representative) was then informed that this was a Telemedicine visit and being conducted confidentially over secure lines. Methods to assure confidentiality were taken. Patient acknowledged consent and understanding of pr ivacy and security of the Telemedicine visit. The patient agreed to participate. Has had vertigo and dizziness for over 2 years. It got much worse about 1 month ago. At that time, she fell down and could not get up for 2 hours. It got slightly better but then got much worse this week and she went to the ED 07/03/24 because she was so miserable with vertigo, nausea, tinnitus, and ear fullness. Not able to stand, walk, or tolerate any oral intake. In the ED, her labs were unremarkable Respiratory PCR was negative. UA was negative. Head CT was normal. Head and neck CTA were both normal. She was given IV steroids, Zofran, and fluids and felt much better. She was then discharged to home with an Rx for prednisone, meclizine, and Zofran. She felt better for a while that night until it wore off. She took half of the prednisone dose due to concern of side effects and felt sick right away. She took the meclizine and Zofran and got very hot, itchy, and flushed and felt worse. She states they have additives and lactose in the pills thatshe cannot tolerate. Had swelling of her face last night. She feels terrible today. Is very dizzy and nauseated. Has fullness in her ears. She only took the oral medications once on 07/04/24 because she felt so sick after taking them. Was dry heaving all morning. Has not been able to eat much. Has had tinnitus since she had COVID the first time. Is not sure if she has had hearing loss but feels that she has episodes where she cannot hear well. Results for orders placed or performed in visit on 08/25/23 TSH WITH FREE T4 IF INDICATED Result Value Ref Range TSH 2.71 0.27 - 4.20 uIU/mL VITAMIN B12 Result Value Ref Range Vitamin B12 502 232 - 1,245 pg/mL BASIC METABOLIC PANEL Result Value Ref Range BUN 16 6 - 20 mg/dL CREATININE 1.0 0.5 - 1.0 mg/dL EGFR 77 >=60 mL/min SODIUM 144 135 - 146 mmol/L POTASSIUM 4.5 3.5 - 5.1 mmol/L CHLORIDE 110 (H) 98 - 107 mmol/L CO2 19 (L) 22 - 32 mmol/L ANION GAP 15 7 - 15 mmol/L GLUCOSE 110 70 - 120 mg/dL CALCIUM 9.2 8.4 - 10.2 mg/dL 25-HYDROXY VITAMIN D Result Value Ref Range 25-Hydroxy Vitamin D 12 (L) >19 ng/mL CBC Result Value Ref Range WBC 8.10 4.00 - 10.80 K/uL RBC 4.63 3.85 - 5.15 M/uL HGB 14.5 12.0 - 15.3 g/dL HCT 44.6 36.0 - 45.2 % MCV 96.3 81.5 - 97.5 fL MCH 31.3 27.0 - 34.0 pg MCHC 32.5 32.0 - 36.0 g/dL RDW 12.2 11.5 - 15.5 % PLT 185 140 - 400 K/uL MPV 13.4 6.6 - 11.1 fL nRBCs 0 <=0 /100 WBCs DIFFERENTIAL, AUTOMATED Result Value Ref Range WBC 8.10 4.00 - 10.80 K/uL Neutrophils % 74.4 40.0 - 75.0 % Lymphocytes % 17.8 (L) 18.0 - 42.0 % Monocytes % 5.3 1.0 - 11.0 % Eosinophils % 2.1 0.0 - 6.0 % Basophils % 0.2 0.0 - 2.0 % Immature Granulocytes % 0.2 0.0 - 2.0 % Absolute Neutrophils 6.02 1.80 - 7.70 K/uL Absolute Lymphocytes 1.44 1.00 - 4.80 K/ul Absolute Monocytes 0.43 0.00 - 1.10 K/uL Absolute Eosinophils 0.17 0.00 - 0.70 K/uL Absolute Basophils 0.02 0.00 - 0.20 K/uL Absolute Immature Granulocytes 0.02 0.00 - 0.20 K/uL PHM: Patient Active Problem List Diagnosis Migraine Intermittent asthma with reliever use up to twice per week Dysmenorrhea Esophageal reflux Lactose intolerance Adverse food reaction Allergic rhinitis S/P cholecystectomy Chronic fatigue syndrome Fibromyalgia Abigail's thyroiditis Anxiety with depression Multiple chemical sensitivity syndrome Panic attack B12 deficiency Vitamin D deficiency Raynaud's phenomenon without gangrene Current Outpatient Medications Medication Sig Dispense Refill Vitamin B-12 1000 MCG Oral Tablet Taking 1500 mcg per week Indications: 1500 gummy No current facility-administered medications for this visit. Past Medical History: Diagnosis Date Dysmenorrhea Food intolerance 03/26/2016 Hypotension IBS (irritable bowel syndrome) 12/25/2017 Lactose intolerance 12/12/2012 Migraine, unspecified, without mention of intractable migraine without mention of status migrainosus S/P cholecystectomy Unspecified asthma(493.90) Past Surgical History: Procedure Laterality Date COLONOSCOPY 08/30/2018 COLONOSCOPY, DIAGNOSTIC (RECTUM) 02/28/2019 normal/COLONOSCOPY FLEXIBLE PROXIMAL DIAGNOSTIC performed by Brisa Leyva DO at ENDOSCOPY [facility] DENTAL SURGERY PROCEDURE NEC 2017 EGD, FLEXIBLE, DIAGNOSTIC 03/30/2012 UPPER GI ENDOSCOPY DIAGNOSTIC performed by Brisa Leyva DO at ENDOSCOPY [facility], no infection EGD, FLEXIBLE, DIAGNOSTIC 02/28/2019 mild gastric irritation on bx/ESOPHAGOGASTRODUODENOSCOPY (EGD), FLEXIBLE, TRANSORAL, DIAGNOSTIC performed by Brisa Leyva DO at ENDOSCOPY [facility] LAPAROSCOPY; CHOLECYSTECTOMY 02/20/2014 LAPAROSCOPIC CHOLECYSTECTOMY performed by Mecca Cowan MD at OR [facility] REMOVE TONSILS & ADENOIDS, UNDER 12 1995 UPPER GI ENDOSCOPY 08/30/2018 Social History Socioeconomic History Marital status: Single Spouse name: Not on file Number of children: 0 Years of education: Not on file Highest education level: Not on file Occupational History Not on file Tobacco Use Smoking status: Never Smokeless tobacco: Never Tobacco comments: no passive smoke Vaping Use Vaping status: Never Used Substance and Sexual Activity Alcohol use: No Drug use: No Sexual activity: Never Other Topics Concern Not on file Social History Narrative [employer] INFORMATION ENVIRONMENTAL HISTORY: Type of Home: Mobile Home Type of Heating System: Oil and Forced air Air Conditioning: Yes Kitchen Basement: None Home have cockroaches: No Irritants in the home: None Patient's bedroom location: Floor: first Type of garland: Tile Beds: Number: 1 Type of beds: Mattress Pillows: Number: 3 Type of pillows: Synthetic (hypoallergenic, polyester) Bedroom contains: Plants Pets: bird(s), 4 cat(s), 3 dog(s), hamster(s), outside horse and mouse Lives on a farm: No Student on-line courses; 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 Entered by: Charles Curiel MD 12/12/2012 Social Needs Financial Resource Strain: Not on file Food Insecurity: No Food Insecurity (04/17/2019) Hunger Vital Sign Worried About Running Out of Food in the Last Year: Never true Ran Out of Food in the Last Year: Never true Transportation Needs: Not on file Social Connections: Unknown (01/10/2024) Social Connections How often do you feel lonely or isolated from those around you? (Adult - for ages 18 years and over): Not on file Housing Stability: Not on file Review of patient's allergies indicates: Allergen Reactions Iodine Itching Per Pt she had CT done yrs ago and gasped for breathe for second and then was very itchy after injection. Flax Seed Oil Diarrhea and Nausea/vomiting Food (See Comments) Other (Please comment) Soy, [place], Peanuts, Almonds, Dairy/Lactose Intolerance potatoes Polyethylene Glycol Nausea/vomiting Wheat Diarrhea and Nausea/vomiting Zoloft [Sertraline Hcl] Panic attack Objective: There were no vitals taken for this visit. Physical Exam: General: alert, well nourished, well developed, and appears moderately ill Neuro Exam: alert & oriented x 3 with fluent speech Extensive ROS Constitutional (f/c/wt/vision/hearing): see above hpi Resp (cough/sob/alfredo): +asthma CV (cp/palp/fluttering/diaphoresis/alfredo/pnd):Negative GI (n/v/d/hrtburn): see above hpi Endo (hair/cold or heat intol/ 3 p's): see above hpi Neuro (shaking/weak/fatigu/parasthesi/): see above hpi Skin (rash/easy bruis/xerosis): see above hpi Psy (si/hi/halluc/): see above hpi (nocturia/hesit/drib/sexual review): Negative Lymph (swollen glands/b sx's/: Negative ASSESSMENT: Vertigo (Primary) - ADULT/PEDS OTOLARYNGOLOGY REFERRAL OP Tinnitus of both ears - ADULT/PEDS OTOLARYNGOLOGY REFERRAL OP Bilateral hearing loss, unspecified hearing loss type - ADULT/PEDS OTOLARYNGOLOGY REFERRAL OP Follow Up: Return in about 3 months (around 10/04/2024) for Clinic Visit. | For: Clinic Visit PLAN: Continue present medication(s): Referral(s) to: ENT for evaluation. Patient education: Discussed sipping fluids to keep hydrated, try taking just meclizine to see if she can tolerate it. If not, recommend Dramamine, which she has taken in the remote past. Declines phenergan suppositories at this time. Refer to ENT. Concerning for Meniere's disease. Head and neck CTA negative. Patient tolerates oral medications poorly due to food allergies. Follow up: in 3 month(s). Annabel Carolina MD documented in this encounter Plan of Treatment Scheduled Referrals Name Type Priority Associated Diagnoses Orde r Schedule ADULT/PEDS OTOLARYNGOLOGY REFERRAL OP Referral Within 10 days (routine) Vertigo Tinnitus of both ears Bilateral hearing loss, unspecified hearing loss type Ordered: 07/06/2024 Health Maintenance Due Date Last Done Comments [...] Cancer Screening 02/24/2022 HPV/Co-Test 02/24/2022 COVID-19 Vaccine (2023- season) 2024 Influenza Vaccine (FLU shot) (#1) 2024 07/25/2013 Hepatitis B Vaccine Completed 1992, 1992, 1992 HPV (Gardasil) Vaccine Aged Out No lo nger eligible based on patient's age to complete this topic MENINGOCOCCAL (MENACTRA/MENVEO) Aged Out No longer eligible based on patient's age to complete this topic documented as of this encounter Medical Devices Not on filedocumented as of this encounter Visit Diagnoses Diagnosis Vertigo- Primary Dizziness and giddiness Tinnitus of both ears Unspecified tinnitus Bilateral hearing loss, unspecified hearing loss type documented in this encounter Care Teams Press Set Up Relationship Specialty Start Date End Date Annabel Carolina MD [address] [place] [address] [place] [phone] PCP - General Family Medicine 10/02/18 documented as of this encounter
[2024-07-11] MEDS ORDERED: PIPERACILLIN/TAZOBACTAM 4.5 GM/100 ML BAG IV SCH (06:00)
[2024-07-11 08:13] LABS: Basophils # (auto) 0.01 K/uL (0.00-0.20); Basophils % (auto) 0.1 %; Eosinophils # (auto) 0.01 K/uL (0.00-0.50); Eosinophils % (auto) 0.1 %; Hemoglobin 12.3 g/dl (12.0-16.0); Immature Granulocytes # (auto) 0.02 K/uL (0.01-0.20); Immature Granulocytes % (auto) 0.2 %; Lymphocytes # (auto) 0.37 K/uL (1.20-3.40); Lymphocytes % (auto) 4.5 %; Mean Corpuscular Hemoglobin 30.5 pg (25.0-34.0); Mean Corpuscular Hgb Conc 34.2 g/dL (32.0-36.0); Mean Corpuscular Volume 89.3 fL (80.0-100.0); Mean Platelet Volume 12.2 fL (9.4-12.4); Monocytes # (auto) 1.09 K/uL (0.11-0.59); Monocytes % (auto) 13.2 %; Neutrophils # (auto) 6.73 K/uL (1.40-6.50); Neutrophils % (auto) 81.9 %; Platelet Count 159 K/uL (130-400); RDW Coefficient of Variation 12.4 % (11.5-14.5); RDW Standard Deviation 40.7 fL (36.4-46.3); Red Blood Count 4.03 M/uL (4.20-5.40); White Blood Count 8.23 K/ul (4.8-10.8)
[2024-07-11 08:30] LABS: Calcium 7.7 mg/dl (8.6-10.3); Potassium 3.6 mmol/L (3.5-5.1)
[2024-07-11] MEDS: ENOXAPARIN INJ 40 MG/0.4 ML SYR SQ SCH (09:36)
--- OUTSIDE RECORDS SUMMARY | 2024-07-11 11:05 | External Medical Summary | Summary of Care ---
Author Name Unknown Organization [facility] Address [address] [facility] [place] [address] Phone [phone] Care Team Providers Care Cutlery Grinder Name Role Phone Annabel Carolina MD Primary Care Provide r Reason for Visit * Reason Onset Date Comments Advice 07/10/2024 Encounter Details Date Type Department Care Team (Late st Contact Info) Description 07/10/2024 Telephone Family Medicine [address] [phone] Annabel Carolina MD [address] [place] [address] [place] [id number] Advice Allergies Active Allergy Reactions Criticality Noted Date Comments Flax Seed Oil Diarrhea,Nausea/vomi ting 02/14/2014 Food (See Comments) Other (Please comment) 02/20/2014 Soy, [place], Peanuts, Almonds, Dairy/Lactose Intolerance potatoes Iodine Itching Medium 10/02/2021 Per Pt she had CT done yrs ago and gasped for breathe for second and then was very itchy after injection. Polyethylene Glycol Nausea/vomiting 08/27/2014 Wheat Diarrhea,Nausea/vomi ting 02/14/2014 Sertraline Hcl 05/23/2018 Panic attack documented as of this encounter (statuses as of 07/10/2024) Medications Vitamin B-12 1000 MCG Oral TabletIndication s:1500 gummy Taking 1500 mcg per week Indications : 1500 gummy 05/23/2020 Active documented as of this encounter (statuses as of 07/10/2024) Active Problems Problem Noted Date Diagnosed Date [...] as of this encounter (statuses as of 07/10/2024) Resolved Problems Problem Noted Date Diagnosed Date Resolved Date Acquired hypothyroidism 02/07/201705/25 Orthostatic hypotension 09/19/201404/24 Shivering 02/20/2014 04/30/2015 Conjunctivitis, allergic 12/12/2012 EXTRINSIC ASTHMA, UNSPEC 02/18/2004 NO KNOWN PROBLEMS 01/03/2012 documented as of this encounter (statuses as of 07/10/2024) Immunizations Name Administration Dates Next Due Meningococcal [...] on file documented as of this encounter Miscellaneous Notes * Telephone Encounter - Corry Ramirez RN - 07/10/2024 2:15 PM EST No answer, I left a message on her voicemail that if she is still symptomatic to call to make an appt for tomorrow, or pt [facility] to [facility] * Telephone Encounter - Chris Willson OSA - 07/10/2024 1:09 PM EST Reason for patient's call: Patient called in requesting to speak with a nurse - regarding her symptoms - spoke with nurse earlier - new symptoms developed. Please call back - [phone]. documented in this encounter Plan of Treatment Upcoming Encounters Date Type Department Care Team (Late st Contact Info) Description 10/10/2024 12:40 PM EDT Office Visit Family Medicine [address] [phone] Stephanie Arrieta PA-C [address] [place] [address] [place] [phone] Health Maintenance Due Date Last Done Comments [...] filedocumented as of this encounter Care Teams Cutlery Grinder Relationship Specialty Start Date End Date Annabel Carolina MD [address] [place] [address] [place] [phone] PCP - General Family Medicine 10/02/18 documented as of this encounter
--- OUTSIDE RECORDS SUMMARY | 2024-07-11 11:05 | External Medical Summary | Summary of Care ---
Author Name Unknown Organization [facility] Address [address] [facility] [place] [address] Phone [phone] Care Team Providers Care Bailing Machine Operator Name Role Phone Annabel Carolina MD Primary Care Provide r Encounter Details Date Type Department Care Team (Late st Contact Info) Description 07/10/2024 Orders Only Family Medicine [address] [place] [phone] Annabel Carolina MD [address] [place] [address] [place] [address] Allergies Active Allergy Reactions Criticality Noted Date Comments Flax Seed Oil Diarrhea,Nausea/vomi ting 02/14/2014 Food (See Comments) Other (Please comment) 02/20/2014 Soy, [place], Peanuts, Almonds, Dairy/Lactose Intolerance potatoes Iodine Itching [...] 12:40 PM EDT Office Visit Family Medicine [address] [place] [phone] Stephanie Arrieta PA-C [address] [place] [address] [place] [phone] Health Maintenance Due Date Last Done Comments [...] Procedure Name Priority Date/Time Associated Diagnosis Comments CHEMISTRY-OUTSIDE Routine 07/08/2024 documented in this encounter Results * (ABNORMAL) CHEMISTRY-OUTSIDE (07/08/2024) Not all results display below - see scan for full detail SCAN INCLUDES ER [facility]: CBCD, CMP, MG, HCG, UA OUTSIDE LAB (SEE SCANNED REPORT) CREATININE 0.74 0.55 - 1.02 MG/DL OUTSIDE LAB (SEE SCANNED REPORT) EGFR >90 >60 ML/MIN OUTSIDE L AB (SEE SCANNED REPORT) POTASSIUM 3.6 3.5 - 5.1 MMOL/L OUTSIDE LAB (SEE SCANNED REPORT) GLUCOSE 97 70 - 110 MG/DL OUTSIDE LAB (SEE SCANNED REPORT) HOURS FASTING OUTSID E LAB (SEE SCANNED REPORT) TRIGLYCERIDES-OU TSIDE LAB OUTSIDE LAB (SEE SCANNED REPORT) CHOLESTEROL-OUTS QI LAB OUTSIDE LAB (SEE SCANNED REPORT) HDL-OUTSIDE LAB OUTS QI LAB (SEE SCANNED REPORT) CHOL/HDL RATIO-OUTSIDE LAB OUTSIDE LAB (SEE SCANNED REPORT) LDL (CALCULATED)-OUT SIDE LAB OUTSIDE LAB (SEE SCANNED REPORT) LDL (DIRECT MEASURE)-OUTSIDE LAB OUTSIDE LAB (SEE SCANNED REPORT) HEMOGLOBIN, [id number] LAB OUTSIDE LAB (SEE SCANNED REPORT) PHOSPHORUS-OUTSI DE LAB OUTSIDE LAB (SEE SCANNED REPORT) PTH-OUTSIDE LAB OUTS QI LAB (SEE SCANNED REPORT) MICROALBUMIN RATIO-OUTSIDE LAB OUTSIDE LAB (SEE SCANNED REPORT) PROTEIN, UA-OUTSIDE LAB 100(A) NEGATIVE OUTSIDE LAB (SEE SCANNED REPORT) HGB 14.4 12.0 - 16.0 GM/DL OUTSIDE LAB (SEE SCANNED REPORT) 07/08/2024 us History Per Patient LABORATORY Final Result OUTSIDE LAB (SEE SCANNED REPORT) documented in this encounter Care Teams Bailing Machine Operator Relationship Specialty Start Date End Date Annabel Carolina MD [address] [place] [address] [place] [phone] PCP - General Family Medicine 10/02/18 documented as of this encounter
--- NOTE | 2024-07-11 12:41 | Hospitalist Progress Note ---
Date of Service July 11, 2024 Assessment & Plan (1) Sepsis: Plan: Multifactorial: Cystitis Norovirus diarrheal illness UA is positive for possible infection and urine culture is pending Received 1 dose of ceftriaxone and that was changed to intravenous Zosyn Clinically much better today but is still having tachycardia Advised to drink more fluid Awaiting urine culture sensitivity and likely discharge tomorrow (2) Gastroenteritis due to norovirus: Plan: Has been having nausea, abdominal bloating and diarrhea Likely secondary to gastroenteritis due to norovirus C. difficile toxin has been negative Will give Imodium to control diarrhea (3) UTI (urinary tract infection): Plan: As above Bronchial asthma, stable Hypothyroidism, currently not on maintenance medications, euthyroid DVT prophylaxis. Lovenox subcu Full code Admission and Anticipated Discharge Date Admission Date: July 10, 2024 Subjective 07/11/2024 The patient was seen and examined in telemetry unit She complains to abdominal bloating with diarrhea and some nausea without any vomiting Her respiratory symptoms are better and does not have any fever and no chills or any shortness of breath She has been feeling much better since admission Review of Systems Review of Systems: All systems reviewed and are unremarkable except as noted below Physical Exam Physical Exam: Lying in bed without any acute distress Constitutional: well developed, well nourished, + ill appearing and + obese Eyes: PERRL, conjunctivae normal, anicteric sclerae ENMT: external ear and nose normal, oropharynx normal Neck: trachea midline, no thyromegaly Respiratory: no respiratory distress Auscultation: lungs clear to auscultation bilaterally Cardiovascular: Rate/Rhythm: regular rate and regular rhythm; not tachycardic Heart Sounds: normal S1 and normal S2; no murmur Extremities: no edema Gastrointestinal (Abdomen): Inspection/Auscultation: + abdomen distended ( mildly distended) and normal bowel sounds Percussion/Palpation: abdomen soft; abdomen nontender Musculoskeletal: No acute arthritis involving any of the joint Neurologic: normal touch/pain/proprioception and moves all extremities; no focal motor deficits Psychiatric: A+Ox3, euthymic affect Lymphatic: no cervical or axillary lymphadenopathy Results & Data Results & Data Vital Signs (Past 12 Hours) Vital Signs Temp Pulse Resp BP Pulse Ox O2 Del Method 07/11/24 07:31 36.6 C 121 H 20 102/78 96 Room Air 07/11/24 03:49 36.5 C 107 H 18 119/74 94 Room Air Laboratory Results Short CBC 07/10/24 07/10/24 07/11/24 Range/Units 15:40 18:07 07:40 WBC Cancelled 15.37 H 8.23 Hgb Cancelled 14.8 12.3 Hct Cancelled 44.1 36.0 L Plt Count Cancelled 187 159 BMP 07/10/24 07/10/24 07/10/24 15:40 18:07 18:43 Sodium 138 Potassium TNP TNP 3.7 Chloride 107 Carbon Dioxide 19 L BUN 16 Creatinine 0.75 Glucose 116 H Calcium 9.5 07/11/24 07:40 Sodium 138 Potassium 3.6 Chloride 111 H Carbon Dioxide 20 L BUN 7 Creatinine 0.78 Glucose 111 H Calcium 7.7 L Liver Function 07/10/24 07/10/24 07/10/24 Range/Units 15:40 18:07 18:43 Total Bilirubin 0.9 (0.2-1.0) mg/dl AST TNP TNP 21 ALT 40 (7-52) U/L Alkaline Phosphatase 82 (34-104) U/L Albumin 4.9 (3.4-5.0) gm/dl Urine 07/10/24 Range/Units 16:08 Urine Color Yellow Urine Appearance Cloudy A (Clear) Urine pH 5.5 (4.5-7.5) Ur Specific [place] 1.033 H (1.000-1.030) Urine Protein 2+ H (Negative) Urine Glucose (UA) Negative (Negative) Medications Administered Current Inpatient Medications Acetaminophen (Acetaminophen 325 Mg Tab) 650 mg PO QID PRN PRN Reason: pain/fever Stop: 08/09/24 21:55 Last Admin: 07/11/24 01:23 Dose: 650 mg Enoxaparin Sodium (Enoxaparin Inj 40 Mg/0.4 Ml Syr) 40 mg SQ QAM KUSH Stop: 08/10/24 08:59 Last Admin: 07/11/24 09:36 Dose: 40 mg Piperacillin Sod/Tazobactam Sod (Zosyn) 4.5 gm in 100 mls @ 25 mls/hr IV Q8H KUSH; Protocol Stop: 07/20/24 21:59 Last Infusion: 07/11/24 09:26 Dose: Infused Promethazine HCl (Phenergan) 12.5 mg in 50.5 mls @ 202 mls/hr IV Q6H PRN PRN Reason: Nausea And Vomiting Stop: 08/09/24 21:55 Ketorolac Tromethamine (Ketorolac Tromethamine 15 Mg/Ml Vial) 15 mg IV Q6H PRN PRN Reason: Pain Stop: 07/15/24 21:55 Lorazepam (Lorazepam 0.5 Mg Tab) 0.5 mg PO TID PRN PRN Reason: Anxiety Stop: 08/09/24 21:57 Oxycodone HCl (Oxycodone Hcl Ir 5 Mg Tab (Immediate Release)) 5 mg PO Q4H PRN PRN Reason: Pain Stop: 07/24/24 21:55
[2024-07-11] MEDS: LOPERAMIDE HCL 2 MG CAP PO PRN (14:08)
[2024-07-11] MEDS: SODIUM CHLORIDE 0.9% 1,000 ML IV SCH (15:56)
[2024-07-11] MEDS: LORazepam 0.5 MG TAB PO PRN (17:03)
[2024-07-12] MEDS: ONDANSETRON INJ 2 MG/ML 2 ML VIAL IV STA (00:07)
[2024-07-12 01:14] LABS: Phosphorus 2.1 mg/dl (2.5-4.9)
[2024-07-12 07:19] LABS: Basophils # (auto) 0.01 K/uL (0.00-0.20); Basophils % (auto) 0.1 %; Eosinophils # (auto) 0.02 K/uL (0.00-0.50); Eosinophils % (auto) 0.3 %; Hematocrit (blood only) 39.6 % (37.0-47.0); Hemoglobin 13.2 g/dl (12.0-16.0); Immature Granulocytes # (auto) 0.02 K/uL (0.01-0.20); Immature Granulocytes % (auto) 0.3 %; Lymphocytes # (auto) 0.65 K/uL (1.20-3.40); Lymphocytes % (auto) 8.2 %; Mean Corpuscular Hemoglobin 30.1 pg (25.0-34.0); Mean Corpuscular Hgb Conc 33.3 g/dL (32.0-36.0); Mean Corpuscular Volume 90.4 fL (80.0-100.0); Mean Platelet Volume 12.5 fL (9.4-12.4); Monocytes # (auto) 1.04 K/uL (0.11-0.59); Monocytes % (auto) 13.1 %; Neutrophils # (auto) 6.22 K/uL (1.40-6.50); Platelet Count 151 K/uL (130-400); RDW Coefficient of Variation 12.3 % (11.5-14.5); RDW Standard Deviation 40.8 fL (36.4-46.3); Red Blood Count 4.38 M/uL (4.20-5.40); White Blood Count 7.96 K/ul (4.8-10.8)
[2024-07-12 07:49] LABS: BUN Creatinine Ratio 5.2 (10-20); Creatinine Clr Calc Pharmacy 129.5 ml/min; Magnesium 2.2 mg/dl (1.7-2.4); Potassium 3.2 mmol/L (3.5-5.1)
[2024-07-12] MEDS: POTASSIUM CHLORIDE CRTAB 20 MEQ TABCR PO STA (09:08)
--- NOTE | 2024-07-12 13:20 | Hospitalist Progress Note ---
Date of Service July 12, 2024 Assessment & Plan (1) Sepsis: Plan: Multifactorial: Cystitis Norovirus diarrheal illness UA is positive for possible infection and urine culture is pending Received 1 dose of ceftriaxone and that was changed to intravenous Zosyn Clinically much better today but is still having tachycardia Advised to drink more fluid Awaiting urine culture sensitivity and likely discharge tomorrow Clinically much better without any significant dysuria Denies any fever and/or chills. Anxiety episodes Has been having attacks of anxiety and received 1 dose of Ativan 0.5 mg She sees a therapist as an outpatient and was advised to continue with the therapy Non drug management for her anxiety Will have her therapy dog in hospital and likely discharge this afternoon (2) Gastroenteritis due to norovirus: Plan: Has been having nausea, abdominal bloating and diarrhea Likely secondary to gastroenteritis due to norovirus C. difficile toxin has been negative Will give Imodium to control diarrhea Diarrhea seems to be reasonably controlled and he still has minimal nausea but no vomiting (3) UTI (urinary tract infection): Plan: As above Urine culture has been growing 3 different organisms Will continue antibiotic for 5 days in total on discharge Bronchial asthma, stable Hypothyroidism, currently not on maintenance medications, euthyroid DVT prophylaxis. Lovenox subcu Full code Admission and Anticipated Discharge Date Admission Date: July 10, 2024 Subjective 07/11/2024 The patient was seen and examined in telemetry unit She complains to abdominal bloating with diarrhea and some nausea without any vomiting Her respiratory symptoms are better and does not have any fever and no chills or any shortness of breath She has been feeling much better since admission 07/12/2024 The patient was seen and examined in telemetry unit She was noted to be very anxious yesterday and received 0.5 mg of Ativan and feels that she has been drowsy and weak since this morning She has anxiety episodes and she has a therapist as an outpatient Of for psychiatric evaluation she did not want to have it in the hospital Remains weak but denies any other significant symptoms and the diarrhea has been better Review of Systems Review of Systems: All systems reviewed and are unremarkable except as noted below Physical Exam Physical Exam: Lying in bed without any acute distress but has minimal anxiety Constitutional: well developed, well nourished, + ill appearing and + obese Eyes: PERRL, conjunctivae normal, anicteric sclerae ENMT: external ear and nose normal, oropharynx normal Neck: trachea midline, no thyromegaly Respiratory: no respiratory distress Auscultation: lungs clear to auscultation bilaterally Cardiovascular: Rate/Rhythm: regular rate and regular rhythm; not tachycardic Heart Sounds: normal S1 and normal S2; no murmur Extremities: no edema Gastrointestinal (Abdomen): Inspection/Auscultation: + abdomen distended ( mildly distended) and normal bowel sounds Percussion/Palpation: abdomen soft; abdomen nontender Neurologic: normal touch/pain/proprioception and moves all extremities; no focal motor deficits Psychiatric: A+Ox3, euthymic affect Lymphatic: no cervical or axillary lymphadenopathy Results & Data Results & Data Vital Signs (Past 12 Hours) Vital Signs Temp Pulse Pulse Resp BP Pulse Ox O2 Del Method 07/12/24 10:50 36.7 C 97 H 18 104/71 97 Room Air 07/12/24 08:11 104 H 07/12/24 07:09 36.6 C 85 18 111/74 97 Room Air 07/12/24 02:37 36.7 C 102 H 18 122/82 97 Room Air Laboratory Results Short CBC 07/12/24 Range/Units 06:54 WBC 7.96 (4.8-10.8) K/ul Hgb 13.2 (12.0-16.0) g/dl Hct 39.6 (37.0-47.0) % Plt Count 151 (130-400) K/uL [facility] 07/12/24 06:54 Sodium 141 Potassium 3.2 L Chloride 111 H Carbon Dioxide 22 BUN 4 L Creatinine 0.77 Glucose 110 H Calcium 8.0 L Medications Administered Current Inpatient Medications Acetaminophen (Acetaminophen 325 Mg Tab) 650 mg PO QID PRN PRN Reason: pain/fever Stop: 08/09/24 21:55 Last Admin: 07/11/24 17:03 Dose: 650 mg Enoxaparin Sodium (Enoxaparin Inj 40 Mg/0.4 Ml Syr) 40 mg SQ QAM KUSH Stop: 08/10/24 08:59 Last Admin: 07/12/24 10:10 Dose: 40 mg Piperacillin Sod/Tazobactam Sod (Zosyn) 4.5 gm in 100 mls @ 25 mls/hr IV Q8H KUSH; Protocol Stop: 07/20/24 21:59 Last Infusion: 07/12/24 11:08 Dose: Infused Promethazine HCl (Phenergan) 12.5 mg in 50.5 mls @ 202 mls/hr IV Q6H PRN PRN Reason: Nausea And Vomiting Stop: 08/09/24 21:55 Ketorolac Tromethamine (Ketorolac Tromethamine 15 Mg/Ml Vial) 15 mg IV Q6H PRN PRN Reason: Pain Stop: 07/15/24 21:55 Loperamide HCl (Loperamide Hcl 2 Mg Cap) 2 mg PO Q3H PRN PRN Reason: Diarrhea Stop: 08/10/24 12:40 Last Admin: 07/12/24 00:33 Dose: 2 mg Lorazepam (Lorazepam 0.5 Mg Tab) 0.5 mg PO TID PRN PRN Reason: Anxiety Stop: 08/09/24 21:57 Last Admin: 07/12/24 05:49 Dose: 0.5 mg Oxycodone HCl (Oxycodone Hcl Ir 5 Mg Tab (Immediate Release)) 5 mg PO Q4H PRN PRN Reason: Pain Stop: 07/24/24 21:55
--- NOTE | 2024-07-12 19:00 | Electrocardiogram Report ---
Test Reason : Blood Pressure : */* mmHG Vent. Rate : 112 BPM Atrial Rate : 112 BPM P-R Int : 146 ms QRS Dur : 88 ms QT Int : 314 ms P-R-T Axes : 30 43 -33 degrees QTcB Int : 428 ms Sinus tachycardia Low voltage QRS Cannot rule out Anterior infarct , age undetermined T wave abnormality, consider anterior ischemia T wave abnormality, consider inferior ischemia Abnormal ECG When compared with ECG of 03-Jul-2024 16:53, T wave inversion more evident in Inferior leads Inverted T waves have replaced nonspecific T wave abnormality in Anterior leads Confirmed by Panchito Chapman ([id number]) on 07/12/2024 7:00:02 PM Referred By: REFERRED SELF Confirmed By: Panchito Chapman
[2024-07-13] MEDS: ONDANSETRON INJ 2 MG/ML 2 ML VIAL IV PRN (05:55)
[2024-07-13 08:11] LABS: BUN Creatinine Ratio 3.8 (10-20); Calcium 8.3 mg/dl (8.6-10.3); Creatinine Clr Calc Pharmacy 124.5 ml/min; Potassium 3.2 mmol/L (3.5-5.1)
[2024-07-13] MEDS: POTASSIUM CHLORIDE CRTAB 20 MEQ TABCR PO STA (09:29)
[2024-07-13 11:43] VITALS: RESP 19
--- NOTE | 2024-07-13 12:28 | Hospitalist Progress Note ---
Date of Service July 13, 2024 Assessment & Plan (1) Sepsis: Plan: Multifactorial: Cystitis Norovirus diarrheal illness UA is positive for possible infection and urine culture is pending Received 1 dose of ceftriaxone and that was changed to intravenous Zosyn Clinically much better today but is still having tachycardia Advised to drink more fluid Awaiting urine culture sensitivity and likely discharge tomorrow Clinically much better without any significant dysuria Denies any fever and/or chills. Denies any urinary symptoms and feels her symptoms are most likely due to antibiotic Urine culture shows contaminated sample with 3 different organisms Antibiotic will be discontinued and she will not given any more antibiotic on discharge Anxiety episodes Has been having attacks of anxiety and received 1 dose of Ativan 0.5 mg She sees a therapist as an outpatient and was advised to continue with the therapy Non drug management for her anxiety Will have her therapy dog in hospital and likely discharge this afternoon She has been feeling much better since her therapy dog is her bedside (2) Gastroenteritis due to norovirus: Plan: Has been having nausea, abdominal bloating and diarrhea Likely secondary to gastroenteritis due to norovirus C. difficile toxin has been negative Will give Imodium to control diarrhea Diarrhea seems to be reasonably controlled and he still has minimal nausea but no vomiting Still having diarrhea and may be contributed by Zosyn (3) UTI (urinary tract infection): Plan: As above Urine culture has been growing 3 different organisms Will continue antibiotic for 5 days in total on discharge Antibiotic has been discontinued and will not be given any further antibiotic on discharge Bronchial asthma, stable Hypothyroidism, currently not on maintenance medications, euthyroid DVT prophylaxis. Lovenox subcu Full code Admission and Anticipated Discharge Date Admission Date: July 10, 2024 Subjective 07/11/2024 The patient was seen and examined in telemetry unit She complains to abdominal bloating with diarrhea and some nausea without any vomiting Her respiratory symptoms are better and does not have any fever and no chills or any shortness of breath She has been feeling much better since admission 07/12/2024 The patient was seen and examined in telemetry unit She was noted to be very anxious yesterday and received 0.5 mg of Ativan and feels that she has been drowsy and weak since this morning She has anxiety episodes and she has a therapist as an outpatient Of for psychiatric evaluation she did not want to have it in the hospital Remains weak but denies any other significant symptoms and the diarrhea has been better 07/13/2024 The patient was seen and examined in telemetry unit in presence of the mother She has been weak but less anxious today Denies any other significant symptoms and has been feeling a lot better since her therapy dog is with her Her antibiotic has been discontinued and she will be going home this afternoon Review of Systems Review of Systems: All systems reviewed and are unremarkable except as noted below Physical Exam Physical Exam: Lying in bed without any acute distress but has minimal anxiety Constitutional: well developed, well nourished, + ill appearing and + obese Eyes: PERRL, conjunctivae normal, anicteric sclerae ENMT: external ear and nose normal, oropharynx normal Neck: trachea midline, no thyromegaly Respiratory: no respiratory distress Auscultation: lungs clear to auscultation bilaterally Cardiovascular: Rate/Rhythm: regular rate and regular rhythm; not tachycardic Heart Sounds: normal S1 and normal S2; no murmur Extremities: no edema Gastrointestinal (Abdomen): Inspection/Auscultation: + abdomen distended ( mildly distended) and normal bowel sounds Percussion/Palpation: abdomen soft; abdomen nontender Neurologic: normal touch/pain/proprioception and moves all extremities; no focal motor deficits Psychiatric: A+Ox3, euthymic affect Lymphatic: no cervical or axillary lymphadenopathy Results & Data Results & Data Vital Signs (Past 12 Hours) Vital Signs Temp Pulse Pulse Resp BP Pulse Ox O2 Del Method 07/13/24 11:42 36.3 C L 74 19 96/67 L 96 Room Air 07/13/24 08:00 79 07/13/24 07:15 36.3 C L 72 18 107/75 97 Room Air 07/13/24 03:29 36.6 C 85 17 109/72 98 Room Air Laboratory Results [facility] 07/13/24 07:31 Sodium 139 Potassium 3.2 L Chloride 108 H Carbon Dioxide 24 BUN 3 L Creatinine 0.80 Glucose 111 H Calcium 8.3 L Medications Administered Current Inpatient Medications Acetaminophen (Acetaminophen 325 Mg Tab) 650 mg PO QID PRN PRN Reason: pain/fever Stop: 08/09/24 21:55 Last Admin: 07/12/24 21:26 Dose: 650 mg Enoxaparin Sodium (Enoxaparin Inj 40 Mg/0.4 Ml Syr) 40 mg SQ QAM KUSH Stop: 08/10/24 08:59 Last Admin: 07/13/24 08:34 Dose: 40 mg Promethazine HCl (Phenergan) 12.5 mg in 50.5 mls @ 202 mls/hr IV Q6H PRN PRN Reason: Nausea And Vomiting Stop: 08/09/24 21:55 Ketorolac Tromethamine (Ketorolac Tromethamine 15 Mg/Ml Vial) 15 mg IV Q6H PRN PRN Reason: Pain Stop: 07/15/24 21:55 Loperamide HCl (Loperamide Hcl 2 Mg Cap) 2 mg PO Q3H PRN PRN Reason: Diarrhea Stop: 08/10/24 12:40 Last Admin: 07/12/24 15:30 Dose: 2 mg Lorazepam (Lorazepam 0.5 Mg Tab) 0.5 mg PO TID PRN PRN Reason: Anxiety Stop: 08/09/24 21:57 Last Admin: 07/12/24 05:49 Dose: 0.5 mg Ondansetron HCl (Ondansetron Inj 2 Mg/Ml 2 Ml Vial) 4 mg IV Q6H PRN PRN Reason: Nausea And Vomiting Stop: 08/12/24 05:30 Last Admin: 07/13/24 05:55 Dose: 4 mg Oxycodone HCl (Oxycodone Hcl Ir 5 Mg Tab (Immediate Release)) 5 mg PO Q4H PRN PRN Reason: Pain Stop: 07/24/24 21:55
[2024-07-13 15:23] VITALS: BP 111/78; TEMP 98.1; O2SAT 97
[2024-07-13 15:58] VITALS: PULSE 78
--- NOTE | 2024-07-14 08:38 | Discharge Summary ---
Date of Service July 14, 2024 Admission HPI Per Admitting Provider History obtained from patient, family, and records. Medical history significant for bronchial asthma, hypothyroidism, migraine, IBS, chronic vertigo. Recent ER visit last week for vertigo symptoms. Patient discharged home on prednisone, Zofran, and meclizine medications. Improved symptoms. Patient woke up this morning with achy abdominal pain associated with nausea, emesis, watery diarrhea. Denies headache, chest pain, SOB. Denies dysuria symptoms. At the ER, patient felt like she was going to pass out. Chest tightness with SOB without cough symptoms. Ceftriaxone administered at the ER. Medical History as above Surgical History : Dental surgery, cholecystectomy, tonsillectomy/adenoidectomy Family History : IBD, heart disease, aneurysm Personal/Social history : Non-smoker, no EtOH intake, unemployed, lives with mother Admission Exam Per Admitting Provider GENERAL: uncomfortable, anxious, no respiratory distress SKIN: Normal color, warm HEENT: [place] palpebral conjunctivae, no ptosis, dry buccal mucosa NECK : Supple, no tenderness CHEST : CTA, no tenderness HEART : Tachycardic, no obvious murmurs ABDOMEN: Some distention, central abdominal tenderness EXTREMITIES : Minimal LE swelling, no LE tenderness, no other conspicuous deformities noted NEUROLOGIC : Coherent, no facial asymmetry, no other gross focality Principal Diagnosis Norovirus diarrheal illness, possible cystitis, generalized anxiety disorder, stable bronchial asthma Discharge Exam Lying in bed without any acute distress but has minimal anxiety Constitutional well developed, well nourished, + ill appearing and + obese Eyes PERRL, conjunctivae normal, anicteric sclerae ENMT external ear and nose normal, oropharynx normal Neck trachea midline, no thyromegaly Respiratory no respiratory distress Auscultation: lungs clear to auscultation bilaterally Cardiovascular Rate/Rhythm: regular rate and regular rhythm; not tachycardic Heart Sounds: normal S1 and normal S2; no murmur Extremities: no edema Gastrointestinal (Abdomen) Inspection/Auscultation: + abdomen distended ( mildly distended) and normal bowel sounds Percussion/Palpation: abdomen soft; abdomen nontender Neurologic normal touch/pain/proprioception and moves all extremities; no focal motor deficits Psychiatric A+Ox3, euthymic affect Lymphatic no cervical or axillary lymphadenopathy Discharge Data Allergies Allergy/AdvReac Type Severity Reaction Status Date / Time coconut Allergy Unknown UNKNOWN Unverified 09/10/20 13:00 egg Allergy Unknown UNKNOWN Unverified 09/10/20 13:00 lactose Allergy Unknown UNKNOWN Unverified 09/10/20 13:00 peanut Allergy Unknown UNKNOWN Unverified 09/10/20 13:00 soy Allergy Unknown UNKNOWN Unverified 09/10/20 13:00 wheat Allergy Unknown UNKNOWN Unverified 09/10/20 13:00 almond Allergy Verified 09/10/20 13:00 ibuprofen AdvReac Intermediate RASH/HIVES Unverified 09/10/20 13:00 polyethylene glycol AdvReac Intermediate CHEST Unverified 09/10/20 13:00 PAINS/NAUSEA Consultations 07/10/24 20:56 ED Decision to Admit Stat Ordered Studies 07/10/24 17:03 CT Abd and Pelvis [CT abd pelvis IV con only] Stat 07/10/24 21:53 CT angio chest PE protocol Stat Hospital Course (1) Sepsis: Multifactorial: Cystitis Norovirus diarrheal illness UA is positive for possible infection and urine culture is pending Received 1 dose of ceftriaxone and that was changed to intravenous Zosyn Clinically much better today but is still having tachycardia Advised to drink more fluid Awaiting urine culture sensitivity and likely discharge tomorrow Clinically much better without any significant dysuria Denies any fever and/or chills. Denies any urinary symptoms and feels her symptoms are most likely due to antibiotic Urine culture shows contaminated sample with 3 different organisms Antibiotic will be discontinued and she will not given any more antibiotic on discharge Anxiety episodes Has been having attacks of anxiety and received 1 dose of Ativan 0.5 mg She sees a therapist as an outpatient and was advised to continue with the therapy Non drug management for her anxiety Will have her therapy dog in hospital and likely discharge this afternoon She has been feeling much better since her therapy dog is her bedside (2) Gastroenteritis due to norovirus: Has been having nausea, abdominal bloating and diarrhea Likely secondary to gastroenteritis due to norovirus C. difficile toxin has been negative Will give Imodium to control diarrhea Diarrhea seems to be reasonably controlled and he still has minimal nausea but no vomiting Still having diarrhea and may be contributed by Zosyn (3) UTI (urinary tract infection): As above Urine culture has been growing 3 different organisms Will continue antibiotic for 5 days in total on discharge Antibiotic has been discontinued and will not be given any further antibiotic on discharge Bronchial asthma, stable Hypothyroidism, currently not on maintenance medications, euthyroid DVT prophylaxis. Lovenox subcu Full code Total Time Total Time Spent Total Time Spent (In Minutes): 40 minutes Discharge Plan Discharge Items Patient Disposition: Home - Self-Care Reason For Visit: CP, SEPSIS (PRIVATE RM PER REQ) Discharge Diagnosis: Norovirus diarrheal illness, possible cystitis, generalized anxiety disorder, stable bronchial asthma Condition on Discharge: Fair Activity: Resume your previous activity Non-emergency contact: Primary Care Provider Call non-emergency contact if: you have any medication questions and your symptoms worsen Follow-up/Referrals: Annabel Carolina MD [Primary Care Provider] - 07/16/24 1:00 pm (Your appointment will be with [facility].) Diet: Regular Addtl Attending Provider Instructions: Please take precautions to avoid falls Try to drink more fluid Continue your outpatient medications as before.Nothing recorded in hospital system that I can document You can take Imodium as needed for diarrhea as advised Please give appointment with your healthcare providers Pending Studies at Discharge: No Stand-Alone Forms: My [facility], Smoking Cessation Medications and DC Order Discharge Orders: Discharge Order (Routine); Ordered 07/13/24 Ordered By: Tamra Balbuena Admission Data Admit Date/Time: 07/10/24 21:17 Attending Provider: Tamra Balbuena Admit Provider: Han Bauer Primary Care Provider: Annabel Carolina Other Providers: Han Bauer Other Interventions: Discharge Summary Assessment (RN) Last Done: 07/13/24 15:57
== END 2024-07-13 16:15 | disposition home or self-care (01) | DRG 872 ==
LOC: ED 14:35 → 2S 21:17